=== PATIENT | female | born 1980 | race Caucasian/White ===

== ENCOUNTER 2021-05-26 12:00 | Emergency (ER) | payer OTHER, SELFPAY ==
--- NOTE | 2021-05-26 12:05 | ED.DENTAL ---
HPI - Dental/Oral General Chief complaint: Dental/Oral Stated complaint: Tooth pain Time Seen by Provider: 05/26/21 12:05 Source: patient and RN notes reviewed Mode of arrival: ambulatory Limitations: no limitations History of Present Illness HPI Narrative: 40-year-old female presents to the [facility] with complaints of dental pain the left side of face for 2 days. Patient reports I think I lost a crown. Patient states that she has an appointment with a dental provider coming up but could not wait because of the pain. Has taken Tylenol with minimal to no relief. Related Data Home Medications Medication Instructions Recorded Confirmed cholecalciferol (vitamin D3) 50 mcg PO DAILY 05/26/21 05/26/21 desogestrel-ethinyl estradiol 1 tablet PO DAILY 05/26/21 05/26/21 folic acid 1 mg PO DAILY 05/26/21 05/26/21 omega-3 fatty acids-fish oil [Fish 1 cap PO DAILY 05/26/21 05/26/21 Oil] Allergies Allergy/AdvReac Type Severity Reaction Status Date / Time No Known Allergies Allergy Verified 05/26/21 12:08 Review of Systems Review of Systems: All systems reviewed & are unremarkable except as noted in HPI and below Constitutional: Constitutional: Reports no additional constitutional complaints, Denies chills and Denies fever(s) Eyes: Eyes: Reports no additional eye complaints, Denies change in vision and Denies photophobia ENT: Reports as per HPI Comments: Left lower dental pain Cardiovascular: Cardiovascular: Reports no additional cardiovascular complaints and Denies chest pain Respiratory: Respiratory: Reports no additional respiratory complaints, Denies cough and Denies dyspnea Gastrointestinal: Gastrointestinal: Reports no additional gastrointestinal complaints, Denies abdominal pain, Denies nausea and Denies vomiting Musculoskeletal: Musculoskeletal: Reports no additional musculoskeletal complaints Integumentary/Breasts: Skin/Breast: Reports system reviewed and no additional complaints, except as docu Neurologic: Reports system reviewed and no additional complaints, except as documented Psychiatric: Psychiatric: Reports no additional psychiatric complaints Allergic/Immunologic: Allergic/Immunologic: Reports no additional allergic/immunologic complaints PMFSH Social History Social History Gender identity (if verbalized by the patient): Female Comments At the time of my signature, I reviewed and agree with the nursing past medical, surgical, social, and family history. There is no relevant family history pertinent to the patient complaint. Exam Const: General: healthy appearing, no acute distress and alert Nutritional Appearance: well nourished Orientation/consciousness: patient oriented x3 Limitations: no limitations HENMT: Head: normal to inspection Ears: external ears normal, TM's normal bilaterally and EAC's normal General nose exam: Normal external nose present and Normal nasal mucous membranes and turbinates present Face and sinus: normal facial exam and face symmetric Mouth: Yes Normal oral and palatal mucosa present and Yes lip normal Teeth and gingiva: abnormal tooth and associated gingiva lower left tender and other (Poor dentition with multiple fillings) and gingiva abnormal edematous, diffusely erythematous and tender Teeth image: 1. Filling is noted with swelling around teeth 19, 18 and 17. Increased erythema. Throat: posterior oropharynx normal Eyes: Conjunctivae: conjunctivae normal Pupils: Equal, round and reactive pupils present Neck: Neck: normal visual inspection, no lymphadenopathy and no meningeal signs Chest: Chest palpation & inspection: normal inspection of the chest Resp: Effort & Inspection: normal respiratory effort Auscultation: clear to auscultation bilaterally Cardio: Rate: regular rate Rhythm: regular rhythm Back/Spine/Pelvis: Back: no CVA tenderness Skin: General skin exam: normal color Rashes: no bandar
[2021-05-26 12:12] VITALS: BP 119/75; PULSE 97; RESP 16; TEMP 36.8; O2SAT 100
== END 2021-05-26 12:25 | disposition home or self-care (01) ==
PROVIDERS: Emergency Provider Nurse Practitioner
DX: K04.7 Periapical abscess without sinus (principal)
CPT/HCPCS: 99213; G0463

== ENCOUNTER 2022-10-18 12:49 | Emergency (ER) | payer OTHER, SELFPAY ==
[2022-10-18 13:31] VITALS: BP 137/86; PULSE 108; RESP 18; TEMP 36.8; O2SAT 98
--- NOTE | 2022-10-18 14:47 | ED.GENADULT ---
HPI - General Adult General Chief complaint: Upper Respiratory Infection Stated complaint: sorethroat Time Seen by Provider: 10/18/22 14:47 Source: patient Mode of arrival: ambulatory Limitations: no limitations History of Present Illness HPI narrative: 42-year-old female patient presents to the [facility] with complaints of a sore throat for the past week. Patient states that her came in here earlier and was diagnosed with strep so she would come in to be evaluated. Patient states she has had on off again for fevers and chills and body aches. Denies any significant cough. Denies any abdominal pain, nausea, vomiting or diarrhea. Related Data Allergies Allergy/AdvReac Type Severity Reaction Status Date / Time No Known Allergies Allergy Verified 10/18/22 13:54 Review of Systems Review of Systems: CONSTITUTIONAL: Denies fever, chills, or sweats. EYES: Denies visual changes, redness, or discharge. ENT: Denies rhinorrhea, congestion, Positive sore throat, or otalgia. CARDIOVASCULAR: Denies chest pain, palpitations, or edema. RESPIRATORY: Denies cough or dyspnea. GASTROINTESTINAL: Denies abdominal pain, nausea, vomiting, or diarrhea. GENITOURINARY: Denies dysuria or hematuria. SKIN: Denies rash or itching. MUSCULOSKELETAL: Denies back pain, joint pain, or myalgia. NEUROLOGIC: Denies headache, numbness, or weakness. PSYCHIATRIC: Denies anxiety or depression. [facility] Past Medical History Medical History (Updated 10/18/22 @ 14:54 by SERGIO Watson) No significant past medical history Social History Social History Gender identity (if verbalized by the patient): Female Comments at the time of my signature I agree with nursing past medical history, surgical, social, and family history. There is no relevant family history pertinent to the presenting complaint. Exam Narrative: GENERAL: Well-appearing, well-nourished, and in no acute distress. HEAD: Normocephalic, atraumatic. EYES: PERRLA and EOMI. ENT: Nares clear, no rhinorrhea or epistaxis. Mucous membranes moist. slight erythema noted to the posterior pharynx. No tonsillar large min, no exudates or lesions present. Bilateral TMs are clear no erythema foreign body in the canal. NECK: Supple. No lymphadenopathy CHEST: Clear to auscultation. No respiratory distress. HEART: Regular rate and rhythm. No murmur heard. Normal peripheral pulses. ABDOMEN: Soft, nontender, nondistended, normal active bowel sounds. EXTREMITIES: Normal range of motion. No edema. SKIN: Warm, dry, no rash. NEURO: No focal deficits. Alert and oriented x3. Course Course Level of Care: Express Care Visit Vital Signs Vital signs: Vital Signs Temperature 36.8 C 10/18/22 13:31 Pulse Rate 108 H 10/18/22 13:31 Respiratory Rate 18 10/18/22 13:31 Blood Pressure 137/86 10/18/22 13:31 Pulse Oximetry 98 10/18/22 13:31 Oxygen Delivery Room Air 10/18/22 13:31 Temperature 36.8 C 10/18/22 13:31 Pulse Rate 108 H 10/18/22 13:31 Respiratory Rate 18 10/18/22 13:31 Blood Pressure 137/86 10/18/22 13:31 Pulse Oximetry 98 10/18/22 13:31 Oxygen Delivery Room Air 10/18/22 13:31 Vital signs reviewed. The patient has been informed that they may have pre-hypertension or Hypertension based on a BP reading in the department. I recommend that the patient call the primary care provider listed on their discharge instructions or a physician of their choice this week to arrange follow up for further evaluation of possible pre-hypertension or Hypertension Medical Decision Making MDM Narrative Medical decision making narrative: Notify patient that she has positive today for strep throat. We will go ahead and discharge her home with oral antibiotics. Discussed with patient the plan of care and she is in agreement this time. Differential Diagnosis Differential Diagnosis: Differential diagnosis: Viral ph
== END 2022-10-18 14:59 | disposition home or self-care (01) ==
PROVIDERS: Emergency Provider Nurse Practitioner Family
DX: J02.0 Streptococcal pharyngitis (principal)
CPT/HCPCS: 87880; 99213; G0463

== ENCOUNTER 2023-12-22 10:43 | Emergency (ER) | payer OTHER, SELFPAY ==
[2023-12-22 11:29] VITALS: BP 125/83; PULSE 103; RESP 18; TEMP 36.9; O2SAT 100
--- NOTE | 2023-12-22 11:33 | ED.URI ---
HPI - URI/Sore Throat General Chief Complaint: Upper Respiratory Infection Stated Complaint: covid + home test Time Seen by Provider: 12/22/23 11:30 Source: patient and RN notes reviewed Mode of arrival: ambulatory Limitations: no limitations History of Present Illness HPI Narrative: 43-year-old female presents concern for positive COVID test at home. She reports symptoms started on Thursday. She has been taking several OTC meds including Sudafed. She had a positive COVID test at home MD elicited complaint: nasal congestion Related Data Home Medications Medication Instructions Recorded Confirmed cholecalciferol (vitamin D3) 125 125 mcg PO WEEKLY 12/22/23 12/22/23 mcg (5,000 unit) capsule Allergies Allergy/AdvReac Type Severity Reaction Status Date / Time No Known Allergies Allergy Verified 12/22/23 11:27 Review of Systems Review of Systems: CONSTITUTIONAL: Reports malaise EYES: Denies visual changes, redness, or discharge. ENT: Reports rhinorrhea, congestion CARDIOVASCULAR: Denies chest pain, palpitations, or edema. RESPIRATORY: Reports cough. Denies dyspnea. GASTROINTESTINAL: Denies abdominal pain, nausea, vomiting, diarrhea SKIN: Denies rash or itching. MUSCULOSKELETAL: Reports myalgia. NEUROLOGIC: Reports headache. All systems reviewed & are unremarkable except as noted in HPI and below PMFSH Past Medical History Medical History (Updated 12/22/23 @ 11:53 by Lavonne Mcgraw NP) No significant past medical history Social History Social History Gender identity (if verbalized by the patient): Female Comments At time of signature, agree with nursing past medical, surgical, social and family history. There is no relevant family history pertinent to the presenting complaint Exam Narrative: GENERAL: Nontoxic-appearing, well-nourished, and in no acute distress. HEAD: Normocephalic EYES: PERRLA, conjunctivae clear ENT: Nares clear, turbinates edematous and erythematous, clear discharge. Mucous membranes moist. TM pearly breen with dull light reflex bilaterally; no tragal tenderness. Oropharynx not erythematous without lesions. Tonsils not enlarged and without exudate, no drooling, no hoarseness, no trismus, uvula midline. NECK: Supple. No lymphadenopathy CHEST: Clear to auscultation, breath sounds equal. No wheezing, rhonchi, rales, or stridor. No respiratory distress, speaks in full sentences. HEART: Regular rate and rhythm. No murmur heard. SKIN: Warm, dry, no rash. NEURO: Alert and oriented x3. PSYCH: Normal mood and affect Course Course Emergency Course: Patient is aware of diagnosis, understands and agrees to treatment plan. Anticipatory guidance given. Patient agrees to follow-up as directed and is aware of reasons to seek care at the emergency department. Portions of this record may have been created with voice recognition software Level of Care: Express Care Visit Vital Signs Vital signs: Vital Signs Temperature 98.5 F 12/22/23 11:29 Pulse Rate 103 H 12/22/23 11:29 Respiratory Rate 18 12/22/23 11:29 Blood Pressure 125/83 12/22/23 11:29 Pulse Oximetry 100 12/22/23 11:29 Oxygen Delivery Room Air 12/22/23 11:29 Temperature 98.5 F 12/22/23 11:29 Pulse Rate 103 H 12/22/23 11:29 Respiratory Rate 18 12/22/23 11:29 Blood Pressure 125/83 12/22/23 11:29 Pulse Oximetry 100 12/22/23 11:29 Oxygen Delivery Room Air 12/22/23 11:29 Reviewed. MDM - URI/Sore Throat MDM Narrative Medical decision making narrative: Differential diagnosis considered: Alves virus, strep pharyngitis, allergic rhinitis, upper respiratory tract infection, sinusitis, rhinosinusitis, nasopharyngitis. viral pharyngitis, otitis media, otitis externa, pneumonia, bronchitis, viral cough syndrome, viral syndrome, and influenza. Exam findings show no acute concerns or changes; patient is non-toxic appearing and is in no
== END 2023-12-22 12:02 | disposition home or self-care (01) ==
PROVIDERS: Emergency Provider Nurse Practitioner
DX: U07.1 COVID-19 (principal)
CPT/HCPCS: 87426; 87804; 99213; G0463

== ENCOUNTER 2024-11-10 09:05 | Emergency (ER) | payer OTHER, SELFPAY ==
[2024-11-10 09:13] VITALS: BP 128/84; PULSE 108; RESP 18; TEMP 36.7; O2SAT 99
--- OUTSIDE RECORDS SUMMARY | 2024-11-10 09:29 | XMS_ITS | Clinical Summary ---
Author Organization [facility] Address [address] [place] [address]. [place], [place] [id number] [place] [id number] Care Team Providers Care Air Tube Releaser Name Role Phone None, Provider MD Primary Care Provider Unavaila ble Allergies No known active allergies Medications omeprazole 10 MG capsule Take 10 mg by mouth daily. Active insulin NPH 100 UNIT/ML injection Inject 12 Units into the skin every morning. Active insulin aspart 100 UNIT/ML injection (PEN) Inject 8 Units into the skin every morning. Active insulin aspart 100 UNIT/ML injection (PEN) Inject 4 Units into the skin after lunch. Active insulin NPH 100 UNIT/ML injection Inject 18 Units into the skin every evening. Active insulin aspart 100 UNIT/ML injection (PEN) Inject 6 Units into the skin every evening. Active Immunizations Name Administration Dates Next Due MODERNA COVID-19 (12+) MRNA, LNP-S, PF, 100 MCG/ 0.5 ML DOSE 02/08/2021,01/11/2021 Social History Tobacco Use Types Packs/Day Years Used Date Smoking Tobacco: Never Smokeless Tobacco: Never Alcohol Use Standard Drinks/Week Comments No 0 (1 standard drink = 0.6 oz pur e alcohol) Humiliation, Afraid, Rape, and Kick questionnair e Answer Date Recorded Fear of Current or Ex-Partner No Emotionally Abused No 07/07/2019 Physically Abused No 07/07/2019 Sexually Abused No 07/07/2019 AUDIT-C Answer Date Recorded Frequency of Alcohol Consumption Never 06/28/2019 Average Number of Drinks Not on file 019 Frequency of Binge Drinking Not on file 06/12 Comments No Sex and Gender Information Value Date Recorded Sex Assigned at Not on file Legal Sex Female 7:56 PM CDT Gender Identity Not on file Sexual Orientation Not on file Last Filed Vital Signs Vital Sign Reading Time Taken Comments Blood Pressure 117/82 07/14/2019 1:10 PM CDT Pulse 95 07/14/2019 1:35 PM CDT Temperature 36.9 ??C (98.5 ??F) 07/07/2019 1:30 PM CD T Respiratory Rate 16 07/07/2019 3:30 PM CDT Oxygen Saturation 100% 07/14/2019 1:35 PM CDT Inhaled Oxygen Concentration - - Weight 78.5 kg (173 lb) 07/14/2019 10:11 AM CDT Height 157.5 cm (5' 2 ) 07/14/2019 10:11 AM CDT Body Mass Index 31.64 07/14/2019 10:11 AM CDT Plan of Treatment Health Maintenance Due Date Last Done Comments Cervical Cancer Screening Pa p Smear (Age 30 to 64) Every 3 Years 1981 Annual Physical 1984 Hepatitis C 1999 DTaP, Tdap and Td Vaccines ( 1 - Tdap) 2000 Hepatitis B Vaccines (1 of 3 - 19+ 3-dose series) 2000 Cervical Cancer Screening Pa p with HPV Testing (Age 30 to 64) Every 5 Years 2011 Cervical Cancer Screening [facility] HPV 2011 Mammogram Screening 2021 COVID-19 Vaccine (3 - 2023-2 5 season) 2024 02/08/2021, 01/11/2021 Influenza Adult (#1) 2024 08/26/2016 HPV Vaccines Aged Out No longer eligi ble based on patient's age to complete this topic Meningococcal B Vaccine Aged Out No l onger eligible based on patient's age to complete this topic Meningococcal Vaccine Aged Out No maria e luis eligible based on patient's age to complete this topic Pneumococcal Vaccine: Pediatrics (0 to 5 Years) and At-Risk Patients (6 to 64 Years) Aged Out No longer eligible b ased on patient's age to complete this topic RSV Immunizations Under 20 Months Aged Out No longer eligible b ased on patient's age to complete this topic Insurance Care Teams Air Tube Releaser Relationship Specialty Start Date End Date None, Provider, PCP - General 06/28/19
--- OUTSIDE RECORDS SUMMARY | 2024-11-10 09:29 | XMS_ITS | Clinical Summary ---
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 Gender Identity Not on file Sexual Orientation Not on file Plan of Treatment Health Maintenance Due Date Last Done Comments Hepatitis C Virus (HCV) Screening 1981 TdaP Immunization 1981 Hepatitis B Immunization (1 of 3 - 19+ 3-dose series) 2000 Pap Smear 2002 Cervical Cancer Screening (CCS) 2011 HPV/Cotest 2011 Discussion re Starting/Frequency of Mammograms 2021 Influenza Immunization (#1) 06/12/202407/12, 08/26/2016 SARS-COV-2 Immunization ( season) 2024 Respiratory Syncytial Virus (RSV) Immunization (Adult) (1 - 1-dose 75+ series) 2056 Meningococcal Immunization (ACWY) Aged Out No longer eligible b ased on patient's age to complete this topic Pneumococcal Immunization Combined Aged Out No longer eligible b ased on patient's age to complete this topic Rotavirus Immunization Aged Out No lo nger eligible based on patient's age to complete this topic Insurance [employer] on file
--- OUTSIDE RECORDS SUMMARY | 2024-11-10 09:29 | XMS_ITS | Continuity of Care Document ---
Author Name [facility] Organization [facility] Care Team Providers Care Cash Register Balancer Name Role Phone [facility] Unavailable Unavailable Problems Combined list of problems from Department of Defense and Veterans Affairs facilities. It does not include entries that were removed or entered in error. Problem Status Onset Date Problem Type Date of Resolution Comments Source BMI 30.0-30.9 Active 4 Diagnosis 005- Joselito Obesity, unspecified Active 4 Diagnosis 005- Joselito Encounter for gynecological examination (general) (routine) with abnormal findings Active 4 Diagnosis 005- Joselito Other specified abnormal findings of blood chemistry Active 4 Diagnosis 005- Joselito [place] Active 4 Diagnosis 0055C- Joselito Supervision of elderly multigravida, unspecified trimester Active 9 Condition [facility] Gestational diabetes mellitus, class A>2< Active 5 Condition [facility] Gestational diabetes mellitus in , insulin controlled Active 5 Condition [facility] External hemorrhoids Active Condition [facility] visit for: administrative purpose Inactive Condition [facility] right ankle joint pain Inactive Condition [facility] Outpatient Physician Consultation Active Condition [facility] hemorrhoids external Active Condition [facility] breast pain Active Condition [facility] visit for: services physical Inactive Condition [facility] Medications Combined list of outpatient medications from Department of Defense and Veterans Affairs facilities.Medications provided include 1) outpatient medications from the last 15 months, and 2) patient-reported medications. Medication Details Route Status Patient Instructions Prescription Expires Prescription Number Last Dispense Date Ordering Provider Order Date Order Qty Source amoxicillin -clavulanat e 875 mg-125 mg oral tablet 0 total refill(s ) Discont inued 08/03/2024 No Facilit y Access CHOLECALCIF (VIT D3) 5,000 UNIT ORAL CAP 02/03/2024 [id number] 2023 90 [facility] Delfino EASON [place] cholecalcif cole 125 mcg (5,000 units) capsule See Instruct ions, # 90 EA, 3 total refill(s ), Acute Complet ed 02/03/2024 90.0 Ambulat ory Pharmac y cholecalcif cole 125 mcg (5000 intl units) oral capsule cholecal ciferol 125 mcg (5000 intl units) oral capsule Start Date: 02/21/21 Status: Ordered Ordered No Facilit y Access desogestrel -ethinyl estradiol 0.15 mg-0.03 mg oral tablet desogest rel-ethi nyl estradio l 0.15 mg-0.03 mg oral tablet Start Date: 06/28/21 Stop Date: 08/03/24 Status: Disconti nued Discont inued 08/03/2024 No Facilit y Access folic acid 1 mg oral tablet 1 tab(s), Oral, Daily, # 90 tab(s), 3 total refill(s ), [facility], Pharmacy : [facility] Oral (given by mouth) Ordered 90.0 5C-[address] [place] [address] Delfino folic acid 1 mg oral tablet TAKE ONE TABLET BY MOUTH DAILY, # 90 EA, 3 total refill(s ), Acute Complet ed 02/03/2024 90.0 Ambulat ory Pharmac y ibuprofen 600 mg oral tablet ibuprofe n 600 mg oral tablet Start Date: 06/01/21 Status: Ordered Ordered No Facilit y Access methylPREDN ISolone 4 mg oral tablet methylPR EDNISolo ne 4 mg oral tablet Start Date: 08/04/21 Stop Date: 08/03/24 Status: Disconti nued Discont inued 08/03/2024 No Facilit y Access omega-3 polyunsatur ated fatty acids 1000 mg oral capsule omega-3 polyunsa turated fatty acids 1000 mg oral capsule Start Date: 02/21/21 Stop Date: 08/03/24 Status: Disconti nued Discont inued 08/03/2024 No Facilit y Access penicillin V potassium 500 mg oral tablet 0 total refill(s ) Discont inued 08/03/2024 No Facilit y Access Pepcid 0 total refill(s ), [facility] Ordered 5C-[address] [place] [address] Delfino Vitamin D3 125 mcg (5000 intl units) oral capsule 1 cap(s), Oral, Daily, with food, # 90 cap(s), 4 total refill(s ), [facility], Pharmacy : [facility] Oral (given by mouth) Ordered 90.0 0055C-[address] [place] [address] Delfino Pippa 3 mg-0.03 mg oral tablet 1 tab(s), Oral, Daily, # 112 tab(s), 4 total refill(s ), [facility], Pharmacy : [facility] Oral (given by mouth) Ordered 112.0 0055C-[address] [place] [address] Delfino Allergies, Adverse Reactions, Alerts Combined list of allergies from Department of Defense and Veterans Affairs facilities. It does not include entries that were removed or entered in error. Substance Category Reaction Severity Reaction type Status Date Reported Comments Source No Known Allergies Drug allergy (disorder) active 03/31/2019 [facility] Delfino EASON [place] Immunizations Combined list of available immunizations from the Department of Defense and Veterans Affairs facilities. Immunization Series Date Given Administered By Site Reaction Lot Number CVX Code Drug Burlap Bag Sewer Status Comments Source COVID Vaccine Moderna 2020 [facility] [id number] complet ed Result Comment: Route: Intramusc ular Manufactu rer: Moderna US Inc 0055C-[address] [place] [address] COVID Vaccine Moderna 2020 [facility] [id number] complet ed Result Comment: Route: Intramusc ular Manufactu rer: Moderna US Inc 0055C-[address] [place] [address] tetanus, diphtheria, acellular pertu is 2018 zzLef t Arm [id number] 115 GlaxoSmithKli ne complet ed tetanus, diphtheri a, acellular pertussis 05/24/19 Given Ambulat ory Pharmac y tetanus toxoid, reduced diphtheria toxoid, and acellular pertu is vaccine, adsorbed 1 2018 Unknown, Provider [id number] 115 SmithKline (SKB) complet ed tetanus toxoid, reduced diphtheri a toxoid, and acellular pertussis vaccine, adsorbed DoD Influenza, inj, MDCK, quadrivalent- pf 2015 SON 171 complet ed Result Comment: Route: Unknown Manufactu rer: OT (SEQ) 0055C-[address] [place] [address] Delfino influenza virus vaccine, live 2011 [id number] Medimmune Inc comple t ed influenza virus vaccine, live 07/31/12 Given Ambulat ory Pharmac y influenza virus vaccine, live, attenuated, for intranasal use 1 2011 [id number] [address] [employer] [address] (MED) complet ed influenza virus vaccine, live, attenuate d, for intranasa l use DoD tetanus, diphtheria, acellular pertu is 2011 [id number] 115 sanofi pasteur complet ed tetanus, diphtheri a, acellular pertussis 05/15/12 Given Ambulat ory Pharmac y tuberculin purified protein derivative 2011 zzRig ht Arm [id number] 96 sanofi pasteur complet ed Patient Tolerance : Negative Ambulat ory Pharmac y tuberculin skin test; purified protein derivative solution, intradermal 1 2011 Unknown, Provider [id number] 96 Sanofi Pasteur (PMC) complet ed tuberculi n skin test; purified protein derivativ e solution, intraderm al DoD tetanus toxoid, reduced diphtheria toxoid, and acellular pertu is vaccine, adsorbed 1 2011 [id number] 115 Sanofi Pasteur (PMC) complet ed tetanus toxoid, reduced diphtheri a toxoid, and acellular pertussis vaccine, adsorbed DoD typhoid Vi capsular polysaccharid e vac 2010 [id number] 101 sanofi pasteur complet ed typhoid Vi capsular polysacch aride vac 07/11/11 Given Ambulat ory Pharmac y anthrax vaccine 2010 [id number] Emer[employer] complet ed anthrax vaccine 07/11/11 Given Ambulat ory Pharmac y anthrax vaccine 5 2010 [id number] [employer] [place] ([facility]) complet ed anthrax vaccine DoD typhoid Vi capsular polysaccharid e vaccine 3 2010 [id number] 101 Sanofi Pasteur (PMC) complet ed typhoid Vi capsular polysacch aride vaccine DoD influenza, seasonal, injectable 2010 [id number] 141 sanofi pasteur complet ed influenza , seasonal, injectabl e 06/28/11 Given Ambulat ory Pharmac y Influenza, seasonal, injectable 6 2010 [id number] 141 Sanofi Pasteur (PMC) complet ed Influenza , seasonal, injectabl e DoD anthrax vaccine 2010 [id number] 24 [employer] complet ed anthrax vaccine 12/29/10 Given Ambulat ory Pharmac y anthrax vaccine 4 2010 [id number] 24 [employer] [place] ([facility]) complet ed anthrax vaccine DoD influenza virus vaccine, live 2009 [id number] 111 [employer] comple t ed influenza virus vaccine, live 07/13/10 Given Ambulat ory Pharmac y influenza virus vaccine, live, attenuated, for intranasal use 1 2009 [id number] [address] (MED) complet ed influenza virus vaccine, live, attenuate d, for intranasa l use DoD tuberculin purified protein derivative 2009 zzLef t Arm [id number] 96 sanofi pasteur complet ed Patient Tolerance : Negative Ambulat ory Pharmac y tuberculin skin test; purified protein derivative solution, intradermal 1 2009 Unknown, Provider [id number] 96 Sanofi Pasteur ([facility]) complet ed tuberculi n skin test; purified protein derivativ e solution, intraderm al DoD Novel influenza-H1N 1-09, injectable 2008 [id number] 127 Novartis Pharmaceutica ls complet ed Novel influenza -[id number], injectabl e 08/28/09 Given Ambulat ory Pharmac y Novel influenza-H1N 1-09, injectable 1 2008 [id number] 127 Novartis Pharmaceutica l Eran. (NOV) complet ed Novel influenza -H9K9-20, injectabl e DoD anthrax vaccine 2008 [id number] 24 [employer] complet ed anthrax vaccine 08/16/09 Given Ambulat ory Pharmac y anthrax vaccine 3 2008 [id number] 24 [employer] [place] ([facility]) complet ed anthrax vaccine DoD influenza virus vaccine,split 2008 [id number] 15 sanofi pasteur complet ed influenza virus vaccine,s plit 07/04/09 Given Ambulat ory Pharmac y influenza virus vaccine, split virus (incl. purified surface antigen)-reti red CODE 4 2008 [id number] 15 Sanofi Pasteur ([facility]) complet ed influenza virus vaccine, split virus (incl. purified surface antigen)- retired CODE DoD typhoid Vi capsular polysaccharid e vac 2008 [id number] 101 sanofi pasteur complet ed typhoid Vi capsular polysacch aride vac 06/12/09 Given Ambulat ory Pharmac y typhoid Vi capsular polysaccharid e vaccine 2 2008 [id number] 101 Sanofi Pasteur (PMC) complet ed typhoid Vi capsular polysacch aride vaccine DoD vaccinia (smallpox) vaccine 2008 VV04-00 3A 75 [employer] [facility] complet ed vaccinia (smallpox ) vaccine 03/06/09 Given Ambulat ory Pharmac y anthrax vaccine 2008 [id number] 24 [employer] complet ed anthrax vaccine 03/06/09 Given Ambulat ory Pharmac y anthrax vaccine 3 2008 [id number] 24 [employer] [place] (MIP) complet ed anthrax vaccine DoD vaccinia (smallpox) vaccine 1 2008 VV04-00 3A 75 [facility] ([facility]) complet ed vaccinia (smallpox ) vaccine DoD anthrax vaccine 2008 [id number] 24 [employer] complet ed anthrax vaccine 02/26/09 Given Ambulat ory Pharmac y anthrax vaccine 2 2008 [id number] 24 [employer] [place] (MIP) complet ed anthrax vaccine DoD anthrax vaccine 2008 [id number] 24 [employer] complet ed anthrax vaccine 01/28/09 Given Ambulat ory Pharmac y anthrax vaccine 1 2008 [id number] 24 [employer] [place] (MIP) complet ed anthrax vaccine DoD influenza virus vaccine, live 2007 [id number] 111 [employer] comple t ed influenza virus vaccine, live 07/15/08 Given Ambulat ory Pharmac y influenza virus vaccine, live, attenuated, for intranasal use 1 2007 [id number] 111 [employer] (MED) complet ed influenza virus vaccine, live, attenuate d, for intranasa l use DoD influenza virus vaccine, live 2006 [id number] 111 [employer] comple t ed influenza virus vaccine, live 10/07/07 Given Ambulat ory Pharmac y influenza virus vaccine, live, attenuated, for intranasal use 1 2006 [id number] [address] [employer] [address] (MED) complet ed influenza virus vaccine, live, attenuate d, for intranasa l use DoD hepatitis A-hepatitis B vaccine 2006 [id number] 3AB 104 [facility] ed hepatitis A-hepatit is B vaccine 05/13/07 Given Ambulat ory Pharmac y typhoid vaccine, parenteral 2006 [id number] sanofi pasteur complet ed typhoid vaccine, parentera l 05/13/07 Given Ambulat ory Pharmac y typhoid vaccine, parenteral, other than acetone-kille d, dried 1 2006 [id number] 41 Sanofi Pasteur (PMC) complet ed typhoid vaccine, parentera l, other than acetone-k illed, dried DoD hepatitis A and hepatitis B vaccine 3 2006 [id number] 3AB 104 SmithKline (SKB) complet ed hepatitis A and hepatitis B vaccine DoD measles, mumps and rubella virus vaccine 0 2006 03 () Not Given measles, mumps and rubella virus vaccine DoD varicella virus vaccine 0 2006 21 () Not Given varicella virus vaccine DoD hepatitis A-hepatitis B vaccine 2006 [id number] [id number] 104 GlaxoSmithKli ne complet ed hepatitis A-hepatit is B vaccine 10/17/06 Given Ambulat ory Pharmac y hepatitis A and hepatitis B vaccine 2 2006 [id number] 8AA 104 [employer]Kline (SKB) complet ed hepatitis A and hepatitis B vaccine DoD meningococcal polysaccharid e (MPSV4) 2005 [id number] 32 sanofi pasteur complet ed meningoco ccal polysacch aride (MPSV4) 09/16/06 Given Ambulat ory Pharmac y hepatitis A-hepatitis B vaccine 2005 [id number] 8AA 104 GlaxoSmithKli ne complet ed hepatitis A-hepatit is B vaccine 09/16/06 Given Ambulat ory Pharmac y measles, mumps and rubella virus vaccine 1 2005 03 () Not Given measles, mumps and rubella virus vaccine DoD varicella virus vaccine 1 2005 21 () Not Given varicella virus vaccine DoD meningococcal polysaccharid e vaccine (MPSV4) 1 2005 [id number] Sanofi Pasteur (PMC) complet ed meningoco ccal polysacch aride vaccine (MPSV4) DoD hepatitis A and hepatitis B vaccine 1 2005 AHABB06 8AA 104 SmithKline (SKB) complet ed hepatitis A and hepatitis B vaccine DoD tuberculin purified protein derivative 2005 Wilmer t Arm [id number] 96 sanofi pasteur complet ed Patient Tolerance : Negative Ambulat ory Pharmac y influenza virus vaccine, whole virus 2005 zzSahara ht Arm [id number] 9BA 16 GlaxoSmithKli ne complet ed influenza virus vaccine, whole virus 09/10/06 Given Ambulat ory Pharmac y influenza virus vaccine,split 2005 [id number] [id number] 15 GlaxoSmithKli ne complet ed influenza virus vaccine,s plit 09/10/06 Given Ambulat ory Pharmac y poliovirus vaccine, inactivated 2005 [id number] 10 sanofi pasteur complet ed polioviru s vaccine, inactivat ed 09/10/06 Given Ambulat ory Pharmac y tetanus-dipht h toxoids (Td) adult/adol 2005 [id number] 09 sanofi pasteur complet ed tetanus-d iphth toxoids (Td) adult/ado l 09/10/06 Given Ambulat ory Pharmac y tetanus and diphtheria toxoids, adsorbed, preservative free, for adult use (2 Lf of tetanus toxoid and 2 Lf of diphtheria toxoid) 1 2005 [id number] 09 Sanofi Pasteur ([facility]) complet ed tetanus and diphtheri a toxoids, adsorbed, preservat sharon free, for adult use (2 Lf of tetanus toxoid and 2 Lf of diphtheri a toxoid) DoD poliovirus vaccine, inactivated 1 2005 [id number] 10 Sanofi Pasteur (PMC) complet ed polioviru s vaccine, inactivat ed DoD influenza virus vaccine, split virus (incl. purified surface antigen)-reti red CODE 1 2005 [id number] 15 [facility] ([facility]) complet ed influenza virus vaccine, split virus (incl. purified surface antigen)- retired CODE DoD influenza virus vaccine, whole virus 1 2005 Unknown, Provider [id number] 16 SmithKline (SKB) complet ed influenza virus vaccine, whole virus DoD tuberculin skin test; purified protein derivative solution, intradermal 1 2005 Unknown, Provider [id number] Sanofi Pasteur ([facility]) complet ed tuberculi n skin test; purified protein derivativ e solution, intraderm al DoD Results Combined list of recent chemistry, hematology and other laboratory results from Department of Defense and Veterans Affairs, ranging from 15 months to all on record, depending upon the facility. Order Name Results Value Reference Range Date Interpretation Specimen Comments Source Chemistr y Vitamin D 25 OH 113.0 ng/mL 30.0 - 100.0 08/05 H Interpretiv e Data: Classificat ion of Vitamin D Status: Deficient: <20 ng/mL Insufficien t: 20-29 ng/mL Sufficient: 30-100 ng/mL Possible Toxicity: >100 ng/mL This assay is for the quantitativ e determinati on of total 25 (OH) vitamin D. It is intended as an aid in the determinati on of vitamin D sufficiency . Results should always be interpreted in conjunction with the patient's medical history, clinical presentatio n, and other findings. Testing performed by [facility] [facility] cuevas. [facility] Pharm[facility] Chemistr y TSH 1.180 mIU/L 0.270 - 4.200 08/05 N Interpretiv e Data: Recommend: TPO/Thyrope roxidase Antibody when TSH result is > 4.2 uIU/mL [facility] Chemistr y Triglyceri case 94 mg/dL 7 - 149 08/05 N Interpretiv e Data: AGES 0-9: Desirable: < 75 mg/dL Borderline High: 75-99 mg/dL High: >/= 100 mg/dL AGES 10-19: Desirable: < 90 mg/dL Borderline High: 90-129 mg/dL High: >/= 130 mg/dL ADULTS: Desirable: < 150 mg/dL Borderline High: 150-199 mg/dL High: >/= 240 mg/dL Very High: >/= 500 mg/dL [facility] Chemistr y LDL/HDL 4 08/05 [facility] Chemistr y LDL 155 mg/dL 100 - 130 08/05 H Interpretiv e Data: AGES 0-19: Desirable: < 110 mg/dL Borderline High: 110-129 mg/dL High: >/= 130 mg/dL ADULTS: Desirable: <100 mg/dL Near/above optimal: 100-130 mg/dL Borderline High: 131-159 mg/dL High: 160-189 mg/dL Very High: e190 mg/dL [facility] Chemistr y HDL Cholestero l 42 mg/dL 40 - 59 08/05 N Interpretiv e Data: HDL (HIGH DENSITY LIPOPROTEIN ): ADULTS: Low: < 40 mg/dL High: >/= 60 mg/dL AGES 0 -19: Low: < 40 mg/dL Borderline Low: 40 - 45 mg/dL Acceptable: > 45 mg/dL [facility] Pharm[facility] Chemistr y Cholestero l Total 192 mg/dL 08/05 N Interpretiv e Data: According to the [place] [employer] : AGES 0-19: Desirable: < 170 mg/dL Borderline High: 170-199 mg/dL High Blood Cholesterol : >/= 200 mg/dL ADULTS: Desirable < 200 mg/dL Borderline High: 200-239 mg/dL High Blood Cholesterol : >/= 240 mg/dL [facility] Pharm[facility] Chemistr y Chol/HDL 5 mg/dL 08/05 [facility] Pharm[facility] Chemistr y Hemoglobin A1c 6.2 % 4.0 - 5.6 08/05 H Interpretiv e Data: Normal: 4.0 - 5.6% Increased Risk: 5.7 - 6.4% Diabetic Range: e 6.5% For patients without diabetes, the normal range for the hemoglobin A1c test is between 4% and 5.6%. Hemoglobin A1c levels between 5.7% and 6.4% indicate increased risk of diabetes, and levels of 6.5% or higher indicate diabetes. Because studies have repeatedly shown that out-of-cont rol diabetes results in complicatio ns from the disease, the goal for people with diabetes is a hemoglobin A1c less than 7%. The higher the hemoglobin A1c, the higher the risks of developing complicatio ns related to diabetes. If confirmatio n is needed, consider recalling the patient and ordering Hemoglobin Electrophor esis. [facility] Pharm[facility] Chemistr y eAvg Glucose 131 mg/dL 08/05 [facility] Pharmacy Hematolo gy Hemoglobin 11.0 g/dL 11.0 - 15.0 08/05 N [facility] Pharmacy Hematolo gy Hematocrit 36 % 34 - 46 08/05 N [facility] AP Specimen s AP Surgical Pathology Patient: Mary Brooks Specimen #: [id number] Patholog ist: Mustapha brian MD, Les., USAF Accessio n: 09/09/20 [facility] DEPARTME NT OF PATHOLOG Y [address] [employer] [facility] [address] [place] [address] Surgical Patholog y Report Patient: Mary Brooks Specimen #: [id number] DOD ID:: [id number] Encounte r #: [id number] Taken: 09/07/20 08:30 /Age: [birth year] (Age: 42) Received : 09/09/20 07:16 Physicia n(s): OCTAVIO CARBONE Reported : 3 Specimen (s) Received Taken Rec LEFT lower, outer breast 09/07/20 08:30 09/09/20 07:16 Final Diagnosi s Breast, Left, 4 o'clock N+3, Ultrasou nd-guide d Biopsy: - Benign intramam lymph node. - Negative for atypia or malignan cy. Comments This case has been reviewed by Dr. Tyrell Camarillo, Staff [facility] ist. Elect sanchoicall y Signed mjp/08/14 Mustapha brian MD, Les., [facility] Clinical Diagnosi s and History 42 yo Female with LEFT breast mass. Suspect intramam lymph node with uniforml y thickene d cortex. Pre-Oper ative Diagnosi s Suspect intramam lymph node vs fibroade noma Post-Ope rative Diagnosi s TBD Gross Descript ion Received in 10% neutral buffered formalin is one containe r labeled with the correct patient' s name and secondar y identifi ers. Part A. Labeled 1st in-0832, last in-849 . The anatomic site is not provided on specimen containe r. Consists of 7 white to yellow, focally hemorrha gic soft tissue fragment s ranging from 0.3 to 1.3 cm in length by 0.1 to 0.2 cm in diameter . ET 2. Block(s) submitte d in 10% neutral buffered formalin for paraffin -embedde d sections . Cold ischemic time: Less than 1 hour. Total fixation time: Greater than 6 hours and less than 72 hours. AWC/ANAT/ JOB , MLJ CPT Codes: A; 53025 09/07 Amb[facility] Pharmacy Vital Signs Combined list of inpatient and outpatient Vital Signs from Department of [facility] and [facility], ranging from 12 months to all on record, depending upon the facility. Vital Sign Value Date Comments Source Systolic Blood Pressure 106mm[Hg] 08/03/2024 14:52:00 Ambulatory Pharmacy Diastolic Blood Pressure 72mm[Hg] 08/03/2024 14:52:00 Ambulatory Pharmacy Mean Arterial Pressure, Calc 83mm[Hg] 08/03/2024 14:52:00 Ambulatory P harmacy Peripheral Pulse Rate 83bpm 08/03/2024 14:52:00 Ambulatory Pharmacy Respiratory Rate 16br/min 08/03/2024 14:52:00 Ambulatory Pharmacy Temperature Oral 37.0Cel 08/03/2024 14:52:00 Ambulatory Pharmacy BP Site 08/03/2024 14:52:00 Ambul atory Pharmacy Blood Pressure Manual 08/03/2024 14:52:00 Ambulatory Pharmacy Encounters Combined list of: 1) Encounters from Department of Veterans Affairs facilities going back up to thelast 18 months. 2) Encounters from the Department of [facility] facilities going back up to 280 months. Location Location Details Encounter Type Encounter Number Reason For Visit Attending Provider ADM Date DC Date Status Disposition Source Theater Facility OUTPATIENT [id number] 10/03 Released w/o Limitations Theater Facilit y [address] [place] [address] Delfino EASON [facility]Sco tt [facility] Fam Res Tm Green) OUTPATIENT [id number] pain in both breats x 2 weeks 367.113 1 MARKY MORAN 01/22 Released w/o Limitations [address] [place] [address] Delfino Leyla [facility] Fam [facility] [place]) [address] [place] [address] Delfino [facility])(Sco tt [facility] FAMRES Tm Blue) OUTPATIENT [id number] Rectum pain, discomf ort possibl e hemmrho ids H# GREGG RODRÍGUEZ 09/24 Released w/o Limitations [address] [place] [address] Delfino EASON [facility]m [facility]) [address] [place] [address] Delfino Leyla [facility]) TELE CONSULT [id number] Notes Entered by: MARTY ALVARADO 16 Nov 2012 1526 ------- ------- ------- ------- -- Network Results - SURGERY 11/02/12 GREGG RODRÍGUEZ 11/[address] [place] [address] Group Delfino EASON [place]S zaheer [facility] FAMRES Tm Blue) [address] [place] [address] Delfino [facility])(Sco tt [facility] Team 3) OUTPATIENT [id number] pain in ankle 367 1131 MAYELIN DONOVAN 09/28 Released w/o Limitations [address] [place] [address] [facility] Team 3) [address] [place] [address] [facility] HEALTH)(Fam gisela Med Tm B Non-AD BCC) TELE CONSULT [id number] Notes Entered by: WILLIAM REYES 28 Sep 2013 1607 ------- ------- ------- ------- -- X-ray results TYRELL LUCIO 09/[address] [place] [address])(F amily Med Tm B Non-AD BCC) [address] [place] [address] Delfino [facility])(Branch Account Manager ecology) TELE CONSULT [id number] Notes Entered by: RABIA PHELPS 15 Jan 2015 1009 ------- ------- ------- ------- -- Walk in preg test JENNIFER HOLLEY 01/15 Referred for Appointment [address] [place] [address])(Margareth gore gy) [address] [place] [address] Delfino [facility])(Ob/ Branch Account Manager) TELE CONSULT [id number] Notes Entered by: Mohit HARRY 17 Jan 2015 0853 ------- ------- ------- ------- -- Lab results MERNA MUELLER 01/[address] [place] [address] Delfino [facility])(O b/Branch Account Manager) [address] [place] [address] Delfino [facility])(Ob/ Branch Account Manager) OUTPATIENT [id number] ob orienta tion - edc sep 25 MERNA MUELLER 01/24 Released w/o Limitations [employer] [place]O b/Branch Account Manager) [facility] [employer] ([facility]Ob/ Branch Account Manager) OUTPATIENT [id number] new ob - edc sep 25 JUAN HARRY 02/19 Released w/o Limitations [facility] [employer] ([facility]O b/Branch Account Manager) [facility] [employer] ([facility]Ob/ Branch Account Manager) TELE CONSULT [id number] Notes Entered by: AKILA ROBERTS 20 Feb 2015 1209 ------- ------- ------- ------- -- Referra omar colin for SunshineMERNA Ceja 02/20 [facility] [employer] ([facility]O b/Branch Account Manager) [facility] [employer] [facility]Ob/ Branch Account Manager) TELE CONSULT [id number] Notes Entered by: HERRERA PHILLIP 14 Mar 2015 1158 ------- ------- ------- ------- -- Network Results -GYNECO LOGY/OB STETRIC S 03/14/15 MERNA MUELLER 03/14 [facility] [employer] ([facility]O b/Branch Account Manager) [facility] [employer] [facility])(Ob/ Branch Account Manager) TELE CONSULT [id number] Notes Entered by: HERRERA PHILLIP 20 Mar 2015 0703 ------- ------- ------- ------- -- Network Results -GYNECO LOGY/OB STETRIC S ADMENDM ENT 03/14/15 MERNA MUELLER 03/20 [facility] [employer] ([facility]O b/Branch Account Manager) [facility] [employer] ([facility]Ob/ Branch Account Manager) OUTPATIENT [id number] hrob - edc sep 25 ANTONIO LUGO 03/27 Released w/o Limitations [facility] [employer] ([facility]O b/Branch Account Manager) [facility] [employer] ([facility]Ob/ Branch Account Manager) TELE CONSULT [id number] Notes Entered by: AKILA ROBERTS 27 Mar 2015 1145 ------- ------- ------- ------- -- HROB - EDC SEP 25 needs [facility] referra jacqueline LEFTY MUELLERSA 03/27 [facility] [employer] ([facility]O b/Branch Account Manager) [facility] [employer] ([facility])(Ob/ Branch Account Manager) TELE CONSULT [id number] Notes Entered by: HERRERA PHILLIP 11 Apr 2015 1008 ------- ------- ------- ------- -- Network Results -GYNECO LOGY/OB STETRIC S 04/11/15 LEFTY MUELLERSA 04/11 [facility] [employer] ([facility]O b/Branch Account Manager) [facility] [employer] ([facility]Ob/ Branch Account Manager) TELE CONSULT [id number] Notes Entered by: JAMES MUELLER 24 Apr 2015 1745 ------- ------- ------- ------- -- Needs [facility] for appts: [id number] and [id number] with [facility] LEFTY MUELLERSA 04/24 [facility] [employer] ([facility])(O b/Branch Account Manager) [facility] [employer] ([facility])(Ob/ Branch Account Manager) TELE CONSULT [id number] Notes Entered by: HERRERA PHILLIP 25 Apr 2015 1612 ------- ------- ------- ------- -- Network Results -GYNECO LOGY/OB STETRIC S 04/25/15 TIERRADAVIDLEFTYSA 04/25 [facility] [employer] ([facility]O b/Branch Account Manager) [facility] [employer] ([facility])(Ob/ Branch Account Manager) OUTPATIENT [id number] hrob - edc sep 25 MILLICENT VELIZ 05/01 Released w/o Limitations [facility] [employer] ([facility]O b/Branch Account Manager) [facility] [employer] ([facility]Ob/ Branch Account Manager) TELE CONSULT [id number] Notes Entered by: JAMES MUELLER 01 May 2015 1517 ------- ------- ------- ------- -- Need referra l for echo [id number] @[id number] MERNA MUELLER 05/[address] [place] [address] Group [employer] ([facility]O b/Branch Account Manager) [address] [place] [address] [employer] B ([facility])(Ob/ Branch Account Manager) TELE CONSULT [id number] Notes Entered by: HERRERA PHILLIP 09 May 2015 1110 ------- ------- ------- ------- -- Network Results -GYNECO LOGY/OB STETRIC S 05/09/15 MILLICENT VELIZ 05/[address] [place] [address] [employer] ([facility]O b/Branch Account Manager) [address] [place] [address] [employer] ([facility])(Ob/ Branch Account Manager) TELE CONSULT [id number] Notes Entered by: HERRERA PHILLIP 24 May 2015 0806 ------- ------- ------- ------- -- Network Results -GYNECO LOGY/OB STETRIC S 05/23/15 MERNA MUELLER 05/[address] [place] [address] [employer] B ([facility])(O b/Branch Account Manager) [address] [place], [place] [address]B ([facility])(Ob/ Branch Account Manager) TELE CONSULT [id number] Notes Entered by: MARY HAQ 24 May 2015 0924 ------- ------- ------- ------- -- Referra ls needed MERNA MUELLER 05/[address] [place] [address] [employer] B ([facility])(O b/Branch Account Manager) [address] [place] [address] [employer] ([facility])(Ob/ Branch Account Manager) OUTPATIENT [id number] hrob - edc sep 25 JUAN HARRY 05/31 Released w/o Limitations [facility] [employer] ([facility])(O b/Branch Account Manager) [address] [place] [address] [employer] ([facility])(Ob/ Branch Account Manager) TELE CONSULT [id number] Notes Entered by: HERRERA PHILLIP 04 Jun 2015 0810 ------- ------- ------- ------- -- Network Results -GYNECO LOGY/OB STETRIC S 05/23/15 MILLICENT VELIZ 06/[address] [place] [address] ([facility]O b/Branch Account Manager) [address] [place] [address])(Ob/ Branch Account Manager) TELE CONSULT [id number] Notes Entered by: HERRERA PHILLIP 06 Jun 2015 1453 ------- ------- ------- ------- -- Network Results -GYNECO LOGY/OB STETRIC S 06/06/15 MILLICENT VELIZ 06/[address] [place] [address] Delfino [facility] ([facility]O b/Branch Account Manager) [address] [place] [address] Delfino [facility])(Ob/ Branch Account Manager) TELE CONSULT [id number] Notes Entered by: JAMES MUELLER 06 Jun 2015 1619 ------- ------- ------- ------- -- [facility] refer[facility] health for appts [id number] and [id number] MERNA MUELLER 06/[address] [place] [address] [employer]elfino [facility] ([facility])(O b/Branch Account Manager) [address] [place] [address] Delfino [facility])(Ob/ Branch Account Manager) TELE CONSULT [id number] Notes Entered by: WAYNE LEMA 07 Jun 2015 1339 ------- ------- ------- ------- -- Network Results - CARDIOL OGY / Echo - 05/24/15 MERNA MUELLER 06/[address] [place] [address] [employer] ([facility]O b/Branch Account Manager) [address] [place] [address] [employer] ([facility])(Branch Account Manager ecology) TELE CONSULT [id number] Notes Entered by: Mohit HARRY 20 Jun 2015 1241 ------- ------- ------- ------- -- Lab results MERNA MEULLER 06/[address] [place] [address] [employer] ([facility])(Margareth rodriguez) [address] [place] [address] [employer]elfino [facility] ([facility])(Ob/ Branch Account Manager) TELE CONSULT [id number] Notes Entered by: HERRERA PHILLIP 21 Jun 2015 0756 ------- ------- ------- ------- -- Network Results -GYNECO LOGY/OB STETRIC S 06/20/15 MERNA MUELLER 06/[address] [place] [address])(O b/Branch Account Manager) [address] [place] [address])(Ob/ Branch Account Manager) TELE CONSULT [id number] Notes Entered by: Mohit HARRY 21 Jun 2015 1205 ------- ------- ------- ------- -- Glucose toleran ce test ANTONIO CLIFTON 06/[address] [place] [address])(O b/Branch Account Manager) [address] [place] [address])(Ob/ Branch Account Manager) OUTPATIENT [id number] hrob - edc sep 25 JUAN HARRY 06/29 Released w/o Limitations [address] [place] [address])(O b/Branch Account Manager) [address] [place] [address])(Ob/ Branch Account Manager) TELE CONSULT [id number] Notes Entered by: HERRERA PHILLIP 05 Jul 2015 0710 ------- ------- ------- ------- -- Network Results -GYNECO LOGY/OB STETRIC S 07/04/15 [facility] [place] [address])(O b/Branch Account Manager) [address] [place] [address])([facility]) OUTPATIENT [id number] Notes Entered by: YUN MARIE 05 Jul 2015 1518 ------- ------- ------- ------- -- GDM ELIAS MARIE 07/05 Released w/o Limitations [address] [place], [place] [address]B ([facility]N utritio nal Medicin e) [address] [place] [address])(Ob/ Branch Account Manager) OUTPATIENT [id number] hrob - edc sep 25 (ck insulin ) MILLICENT VELIZ 07/09 Released w/o Limitations [address] [place] [address] ([facility]O b/Branch Account Manager) [address] [place] [address])(Ob/ Branch Account Manager) TELE CONSULT [id number] Notes Entered by: JAMES MUELLER Shannon 09 Jul 2015 1145 ------- ------- ------- ------- -- Referra needed MERNA MUELLER 07/[address] [place] [address] ([facility]O b/Branch Account Manager) [address] [place] [address])(Ob/ Branch Account Manager) TELE CONSULT [id number] Notes Entered by: MARY AHQ 18 Jul 2015 1458 ------- ------- ------- ------- -- HROB - EDC Sep 25 needs referra jacqueline placed MERNA MUELLER 07/[address] [place] [address])(O b/Branch Account Manager) [address] [place] [address])(Ob/ Branch Account Manager) TELE CONSULT [id number] Notes Entered by: HERRERA PHILLIP 19 Jul 2015 0734 ------- ------- ------- ------- -- Network Results GYNECOL OGY/OBS TETRICS 07/18/15 MERNA MUELLER 07/[address] [place] [address] ([facility]O b/Branch Account Manager) [address] [place] [address])(Fam gisela Med Tm B Non-AD BCC) TELE CONSULT [id number] Notes Entered by: SUHAS DIETZ 24 Jul 2015 0933 ------- ------- ------- ------- -- Network results - Surgery - 5 LEFTY SMITH 07/[address] [place] [address] ([facility]F amily Med Tm B Non-AD BCC) [address] [place] [address] ([facility])(Ob/ Branch Account Manager) OUTPATIENT [id number] hrob - edc sep 25 JUAN HARRY 07/26 Released w/o Limitations [facility] [employer] [facility] ([facility]O b/Branch Account Manager) [facility] Delfino [facility])(Ob/ Branch Account Manager) TELE CONSULT [id number] Notes Entered by: HERRERA PHILLIP 02 Aug 2015 1528 ------- ------- ------- ------- -- Network Results GYNECOL OGY/OBS TETRICS 5 MILLICENT VELIZ 08/[address] [place] [address] Group Delfino [facility])(O b/Branch Account Manager) [address] [place] [address] Delfino [facility])(Ob/ Branch Account Manager) TELE CONSULT [id number] MILLICENT VELIZ 08/[address] [place] [address] Delfino [facility])(O b/Branch Account Manager) [address] [place] [address])(War rior Op Med Cln Tm A Ad) TELE CONSULT [id number] Notes Entered by: Marisol PALMER 06 Aug 2015 0911 ------- ------- ------- ------- -- NAL/OBS BURKE/ MARIE SADLER 08/06 Referred for Appointment [address] [place] [address] Delfino [facility])(W arrior Op Med Cln Tm A Ad) [address] [place] [address] Delfino [facility])(Ob/ Branch Account Manager) TELE CONSULT [id number] Notes Entered by: JAMES MUELLER 21 Aug 2015 1615 ------- ------- ------- ------- -- Referra l for MFM MERNA MUELLER 08/[address] [place] [address] Delfino [facility])(O b/Branch Account Manager) [address] [place] [address] Delfino [facility])(Ob/ Branch Account Manager) TELE CONSULT [id number] Notes Entered by: YOLANDA GOODMAN RD, RA 29 Aug 2015 1306 ------- ------- ------- ------- -- Script for breast Pump MERNA MUELLER 08/[address] [place] [address] [employer] [facility])(O b/Branch Account Manager) [address] [place] [address])(Branch Account Manager ecology) OUTPATIENT [id number] Annual E [id number] CYNDY REYNOSO 10/30 Released w/o Limitations [address] [place] [address] Delfino [facility])(G ynecolo gy) [address] [place] [address] Delfino [facility])(Branch Account Manager ecology) TELE CONSULT [id number] Notes Entered by: KASSI REYNOSO 31 Oct 2015 1254 ------- ------- ------- ------- -- results ANG GREGORY 10/[address] [place] [address])(G ynecolo gy) [address] [place] [address])(War rior Op Med Cln Tm A Ad) OUTPATIENT [id number] discuss postpar jayden anxiety /depres deysi ADRIANA VIDAL 01/03 Released w/o Limitations [address] [place] [address])(W arrior Op Med Cln Tm A Ad) [address] [place] [address])(Sco tt [facility]) TELE CONSULT [id number] Notes Entered by: Ortiz ADORNO 16 Jan 2016 0842 ------- ------- ------- ------- -- 7-10 day call NAZANIN ADORNO 01/[address] [place] [address])(S cott [facility]) [address] [place] [address])(Branch Account Manager ecology) OUTPATIENT [id number] Notes Entered by: MARY HAQ 23 Jan 2016 1235 ------- ------- ------- ------- -- walk in BP and BC refill CYNDY REYNOSO 01/22 Released w/o Limitations [address] [place] [address] Delfino [facility])(G ynecolo gy) [address] [place] [address])(Sco tt [facility]) TELE CONSULT [id number] Notes Entered by: Ortiz ADORNO 20 Feb 2016 1552 ------- ------- ------- ------- -- 4 wk. call NAZANIN ADORNO 02/[address] [place] [address] Group D[employer]ino [facility] ([facility]) [address] [place] [address])([facility]) TELE CONSULT [id number] Notes Entered by: Ortiz ADORNO 25 Feb 2016 0917 ------- ------- ------- ------- -- NAZANIN Gallardo 02/[address] [place] [address] Group [place] ([facility])([facility]) [address] [place] [address])([facility]) TELE CONSULT [id number] Notes Entered by: Ortiz ADORNO 13 Mar 2016 0822 ------- ------- ------- ------- -- 8 wk call NAZANIN ADORNO 03/[address] [place] [address] Group [place] ([facility])([facility]) [address] [place] [address] Delfino [facility])([facility]) TELE CONSULT [id number] Notes Entered by: Ortiz ADORNO 24 Mar 2016 0856 ------- ------- ------- ------- -- NAZANIN Flores 03/[address] [place] [address] Group Delfino [facility] ([facility]) [address] [place] [address] Delfino [facility])([facility]) TELE CONSULT [id number] Notes Entered by: Ortiz ADORNO 23 Apr 2016 1535 ------- ------- ------- ------- -- 12 wk call NAZANIN ADORNO 04/[address] [place] [address])([facility]) [facility] Delfino [facility])([facility]) TELE CONSULT [id number] Notes Entered by: Ortiz ADORNO 06 Jun 2016 1359 ------- ------- ------- ------- -- 16 wk. call NAZANIN ADORNO 06/[address] [place] [address] Group Delfino [facility])([facility]) [address] [place] [address])(War rior Op Med Cln Tm A Ad) OUTPATIENT [id number] Discuss medicat ion cessati on. LEFTY SMITH 06/26 Released w/o Limitations [address] [place] [address] Group [facility])(W arrior Op Med Cln Tm A Ad) [address] [place] [address] Group [facility])([facility]) TELE CONSULT [id number] Notes Entered by: Ortiz ADORNO 10 Jul 2016 1109 ------- ------- ------- ------- -- 20 wk. call NAZANIN ADORNO 07/[address] [place] [address] Group Delfino [facility])([facility]) [address] [place] [address])([facility]) TELE CONSULT [id number] Notes Entered by: Ortiz ADORNO 26 Aug 2016 1508 ------- ------- ------- ------- -- 24 wk call NAZANIN ADORNO 08/[address] [place] [address] Group Delfino [facility])([facility]) [address] [place] [address])(War rior Op Med Cln Tm A Ad) OUTPATIENT [id number] Mole on back michael gaffney size needs checked [id number] JULIO MARTIN 04/16 Released w/o Limitations [address] [place] [address] Group Delfino [facility])(W arrior Op Med Cln Tm A Ad) [address] [place] [address] Group [facility])(War rior Op Med Cln Tm A Ad) OUTPATIENT [id number] mole removal JULIO MARTIN 05/12 Released w/o Limitations [address] [place] [address])(W arrior Op Med Cln Tm A Ad) [address] [place] [address])(Branch Account Manager ecology) OUTPATIENT [id number] COntrac eptive Managem ent, 367.113 1 CYNDY REYNOSO 03/30 Released w/o Limitations [address] [place] [address])(G ynecolo gy) [address] [place] [address])(Branch Account Manager ecology) TELE CONSULT [id number] Notes Entered by: KASSI REYNOSO 31 Mar 2018 0756 ------- ------- ------- ------- -- results ANJEL DAVALOS 03/[address] [place] [address])(G ynecoangela gy) [address] [place] [address])(Branch Account Manager ecology) TELE CONSULT [id number] Notes Entered by: YUN ASCENCIO 02 Apr 2018 1011 ------- ------- ------- ------- -- Test results ANJEL DAVALOS 04/[address] [place] [address])(G ynecoangela gy) [address] [place] [address])(Branch Account Manager ecology) OUTPATIENT [id number] bp check and bc refill - [phone] CYNDY REYNOSO 06/02 Released w/o Limitations [address] [place] [address])(G ynecolo gy) [address] [place] [address])(Branch Account Manager ecology) OUTPATIENT [id number] Notes Entered by: MARY HAQ 02 Dec 2018 1259 ------- ------- ------- ------- -- walk in pregnan cy test ANJEL DAVALOS 12/02 Released w/o Limitations [address] [place] [address])(G ynecolo gy) [address] [place] [address] [employer]ino B ([facility])(Branch Account Manager ecology) OUTPATIENT [id number] new ob - edc jul 30 - [phone] ARELIS LEARY 12/31 Released w/o Limitations [address] [place] [address] Delfino [facility] ([facility])(G ynecolo gy) [address] [place] [address] Delfino B [facility]Ob/ Branch Account Manager) TELE CONSULT [id number] Notes Entered by: JAMES MUELLER 04 Jan 2019 1546 ------- ------- ------- ------- -- MFM REFERRA MERNA RAVI 01/04 Referred for Appointment [address] [place] [address])(O b/Branch Account Manager) [address] [place], [place] [address]B [facility]Ob/ Branch Account Manager) OUTPATIENT [id number] NOB 2wk f/u re headach es per Dr. Leary/ [place] 01/14 Released w/o Limitations [address] [place] [address])(O b/Branch Account Manager) [address] [place], [place] [address] [facility]Ob/ Branch Account Manager) TELE CONSULT [id number] Notes Entered by: JEREMIE VALDIVIA 31 Jan 2019 0940 ------- ------- ------- ------- -- Network results SENIOR CHEMICAL ENGINEER 019 ARELIS IGLESIAS 01/[address] [place] [address])(O b/Branch Account Manager) [address] [place] [address])(Ob/ Branch Account Manager) TELE CONSULT [id number] Notes Entered by: JEANNE KEARNS 01 Feb 2019 1245 ------- ------- ------- ------- -- Network Results OBGYN 01/17/19 ARELIS JEREZ 02/[address] [place] [address])(O b/Branch Account Manager) [address] [place] [address])(Ob/ Branch Account Manager) OUTPATIENT [id number] MARÍA ELENA EDC Jul 30 GIOVANI LANTIGUA 02/10 Released w/o Limitations [address] [place] [address])(O b/Branch Account Manager) [facility])(Ob/ Branch Account Manager) OUTPATIENT [id number] MARÍA ELENA EDC Jul [phone] ARELIS LEARY 03/10 Released w/o Limitations [address] [place] [address])(O b/Branch Account Manager) [address] [place] [address])(Ob/ Branch Account Manager) TELE CONSULT [id number] Notes Entered by: ARELIS LEARY 22 Mar 2019 1235 ------- ------- ------- ------- -- Gestati onal diabete s MERNA MUELLER 03/22 Released to [facility])(O b/Branch Account Manager) [facility])(Ob/ Branch Account Manager) OUTPATIENT [id number] New GDM diagnos is, check sugars [place] 03/31 Released w/o Limitations [address] [place] [address])(O b/Branch Account Manager) [facility])([facility]) TELE CONSULT [id number] Notes Entered by: STACI AGUIRRE 05 Apr 2019 1335 ------- ------- ------- ------- -- Gestati onal Diabete s STACI AGUIRRE 04/[address] [place] [address])(N utritio nal Medicin e) [facility])(Ob/ Branch Account Manager) OUTPATIENT [id number] 4 HROB GALILEA Jul [phone] [place] 04/08 Released w/o Limitations [address] [place] [address])(O b/Branch Account Manager) [facility] Medical [facility])(Ob/ Branch Account Manager) TELE CONSULT [id number] Notes Entered by: SWAPNIL NATION 11 Apr 2019 1051 ------- ------- ------- ------- -- Insulin needles BRI ANG Jane 04/11 Referred for Appointment [employer] [facility])(O b/Branch Account Manager) [facility]Ob/ Branch Account Manager) OUTPATIENT [id number] HROB EDC Jul 30 [place] 04/18 Released w/o Limitations [facility] [employer] [place]O b/Branch Account Manager) [facility] Medical [facility] [employer] ([facility]Branch Account Manager ecology) TELE CONSULT [id number] Notes Entered by: JU MEJIA 25 Apr 2019 0853 ------- ------- ------- ------- -- GDM glucose f/u TIM SANTOS 04/25 Referred for Appointment [facility] [employer] [facility]G ynecoangela gy) [facility] Medical [facility] [employer] B [facility]Ob/ Branch Account Manager) TELE CONSULT [id number] Notes Entered by: JAMES MUELLER 05 May 2019 1303 ------- ------- ------- ------- -- Calling in with FS log BRI ANG Jane 05/05 Referred for Appointment [facility] [employer] ([facility]O b/Branch Account Manager) [facility] [employer] [facility])(Ob/ Branch Account Manager) OUTPATIENT [id number] 5 HROB EDC Jul 30 ARELIS LEARY 05/17 Released w/o Limitations [facility] [employer] [place]O b/Branch Account Manager) [facility] Medical [facility] [employer] ([facility]Ob/ Branch Account Manager) TELE CONSULT [id number] Notes Entered by: ARELIS LEARY 26 May 2019 1331 ------- ------- ------- ------- -- Anemia and check on glucose MERNA MUELLER 05/26 [facility] [employer] [place]O b/Branch Account Manager) [employer] ([facility]Ob/ Branch Account Manager) OUTPATIENT [id number] HROB GALILEA Jul 30 F/U per [facility] r/ ARELIS LEARY 06/02 Released w/o Limitations [employer] [place]O b/Branch Account Manager) [employer] ([facility]Ob/ Branch Account Manager) OUTPATIENT [id number] Notes Entered by: SERGO MUHAMMAD 14 Jun 2019 0844 ------- ------- ------- ------- -- Walk In [facility] ARELIS LEARY 06/14 Released w/o Limitations [employer] [place]O b/Branch Account Manager) [employer] ([facility]Ob/ Branch Account Manager) OUTPATIENT [id number] Notes Entered by: FIOR YOON 17 Jun 2019 0904 ------- ------- ------- ------- -- MERNA LOCKWOOD 06/17 Released w/o Limitations [employer] [place]O b/Branch Account Manager) [employer] ([facility]Ob/ Branch Account Manager) OUTPATIENT [id number] 7 HROB EDC Jul 30/ RENATA MARMOLEJO 06/21 Released w/o Limitations [employer] ([facility]O b/Branch Account Manager) [employer] ([facility]Ob/ Branch Account Manager) OUTPATIENT [id number] Notes Entered by: FIOR YOON 24 Jun 2019 0856 ------- ------- ------- ------- -- MERNA LOCKWOOD 06/24 Released w/o Limitations [employer] [place]O b/Branch Account Manager) [employer] ([facility]Branch Account Manager ecology) OUTPATIENT [id number] Notes Entered by: BRONSON MELENDEZ 28 Jun 2019 0853 ------- ------- ------- ------- -- ARELIS DEXTER 06/28 Released w/o Limitations [employer] [place] ([facility]G ynecolo gy) [facility])(Branch Account Manager ecology) OUTPATIENT [id number] Notes Entered by: BRONSON MELENDEZ 05 Jul 2019 0856 ------- ------- ------- ------- -- GENO MADRIGAL 07/05 Released w/o Limitations [facility]G ynecolo gy) [facility] ([facility])(Ob/ Branch Account Manager) OUTPATIENT [id number] HROB EDC Jul 30 RENATA MARMOLEJO 07/07 Released w/o Limitations [address] [place] [address] ([facility]O b/Branch Account Manager) [facility])(Ob/ Branch Account Manager) OUTPATIENT [id number] Notes Entered by: DEIDRA RINCON 12 Jul 2019 0859 ------- ------- ------- ------- -- GENO MADRIGAL 07/12 Released w/o Limitations [facility] [employer] [place] ([facility]O b/Branch Account Manager) [address] [place] [address] ([facility]Ob/ Branch Account Manager) OUTPATIENT [id number] Notes Entered by: JAMES MUELLER 14 Jul 2019 0931 ------- ------- ------- ------- -- RENATA HURTADO 07/14 Released w/o Limitations [facility]O b/Branch Account Manager) [address] [place], [place] [address]B ([facility])(Ob/ Branch Account Manager) OUTPATIENT [id number] 8 Notes Entered by: BRONSON MELENDEZ 19 Jul 2019 0854 ------- ------- ------- ------- -- ARELIS DEXTER 07/19 Released w/o Limitations [facility] [place] [facility])(O b/Branch Account Manager) [facility])(Ob/ Branch Account Manager) OUTPATIENT [id number] HROB GALILEA Jul 30 RENATA MARMOLEJO 07/22 Released w/o Limitations [facility])(O b/Branch Account Manager) [facility])(Ob/ Branch Account Manager) OUTPATIENT [id number] Notes Entered by: DEIDRA RINCON 26 Jul 2019 0859 ------- ------- ------- ------- -- ARELIS DEXTER 07/26 Released w/o Limitations [facility])(O b/Branch Account Manager) Medical [facility])(Ob/ Branch Account Manager) TELE CONSULT [id number] Notes Entered by: IRENE JOHNSON LT 27 Jul 2019 0938 ------- ------- ------- ------- -- Repeat C/S earl khanna / ANG Cahhal 07/27 Referred for Appointment [facility])(O b/Branch Account Manager) [facility] [employer])(Branch Account Manager ecology) OUTPATIENT [id number] 9 2wk PP incisio n/mood check per provide r/ DEVEN TARIQ 08/11 Released w/o Limitations [facility] [employer] [facility]G ynecolo gy) [facility] [employer] [facility])(Branch Account Manager ecology) OUTPATIENT [id number] 1 6wk PP(deli wai Jul)[phone] DEVEN TARIQ 09/14 Released w/o Limitations [address] [place] [address] [employer] [facility]G ynecolo gy) [address] [place] [address])(War rior Op Med Cln Tm A Ad) OUTPATIENT [id number] 5 gall bladder issue, FEBRUARY, LILI R 09/19 Released w/o Limitations [facility] Medical Group [facility])(W arrior Op Med Cln Tm A Ad) [address] [place] [address])(War rior Op Med Cln Tm A Ad) TELE CONSULT [id number] Notes Entered by: RUFINA GUZMAN 30 Sep 2019 1521 ------- ------- ------- ------- -- Network results Physica l Therapy 019 R FEBRUARY, LILI R 09/[address] [place] [address] Group [facility])(W arrior Op Med Cln Tm A Ad) [address] [place] [address])(War rior Op Med Cln Tm A Ad) TELE CONSULT [id number]: ST MONICA AYALA 14 Oct 2019 1202 ------- ------- ------- ------- -- Network results Surgery [address] [facility] FEBRUARY, LILI R 10/14 [facility])(W arrior Op Med Cln Tm A Ad) [address] [place] [address])(War rior Op Med Cln Tm A Ad) TELE CONSULT [id number] 3 Notes Entered by: RUFINA GUZMAN 03 Nov 2019 1533 ------- ------- ------- ------- -- Network results Surgery 020 R FEBRUARY, LILI R 11/03 [facility])(W arrior Op Med Cln Tm A Ad) [facility])(Branch Account Manager ecology) OUTPATIENT [id number] 9 WWE CYNDY REYNOSO 02/08 Released w/o Limitations [facility] Medical [facility])(G ynecolo gy) [facility])(Branch Account Manager ecology) OUTPATIENT [id number] 4 PAP CYNDY REYNOSO 02/20 Released w/o Limitations [address] [place] [address])(G ynecolo gy) [address] [place] [address])(Branch Account Manager ecology) TELE CONSULT [id number] Notes Entered by: KASSI REYNOSO 22 Feb 2021 1719 ------- ------- ------- ------- -- results DEVEN EDWARDS 02/22 Other Not Elsewhere Classified [address] [place] [address])(G ynecolo gy) [address] [place] [address])(Branch Account Manager ecology) TELE CONSULT [id number] Notes Entered by: SHIVANI WILD 21 Mar 2021 1132 ------- ------- ------- ------- -- BP recordi REBECCA Meeks 03/21 Released to [facility] [address] [place] [address])(G ynecolo gy) [address] [place] [address])(Branch Account Manager ecology) TELE CONSULT [id number] Notes Entered by: ANGELA GUEVARA 28 Jun 2021 0933 ------- ------- ------- ------- -- Med REBECCA Cerda 06/28 Released to [facility] [address] [place] [address])(G ynecolo gy) [address] [place] [address])(Fam gisela Med Tm B Non-AD BCC) TELE CONSULT [id number] Notes Entered by: ISAI FELDER 21 May 2022 0942 ------- ------- ------- ------- -- Initial Referra jasper Muhammad / ( Patient called [phone]) KRISTIE BOWSER 05/21 Released to [facility] [address] [place] [address])(F amily Med Tm B Non-AD BCC) [address] [place] [address] ([facility])(Fam gisela Med Tm B Non-AD BCC) OUTPATIENT [id number] 9 FACE TO FACE: Bump on right leg. ALFREDO MUHAMMAD 06/02 Released w/o Limitations [address] [place] [address])(F amily Med Tm B Non-AD BCC) [address] [place] [address])(Branch Account Manager ecology) OUTPATIENT [id number] 3 WWE CYNDY REYNOSO 02/03 Released w/o Limitations [address] [place] [address])(G ynecolo gy) [address] [place] [address])(Branch Account Manager ecology) TELE CONSULT [id number] Notes Entered by: KASSI REYNOSO 16 Feb 2023 0956 ------- ------- ------- ------- -- results REBECCA FIELDS 02/16 Released to [facility] [address] [place] [address])(G ynecolo gy) - [facility] [id number] Body mass index (BMI) 30.0-30 .9, adult,O besity, unspeci fied,En counter for gynecol ogical examina tion (genera l) (routin e) with abnorma l finding s,Other specifi ed abnorma l finding s of blood chemist instrumentation Shayy lewis 08/03 Discharge Disposition: Home or Self Care 0055C[facility] Outpatient [id number] CYNDY RBGUERDA 08/05 Discharge Disposition: Home or Self Care 0055A-[facility] 00[facility] Between Visit [id number] 08/10 Discharge Disposition: Home or Self Care 0055C-3 [facility] Outpatient [id number] CYNDY TORREZ 09/12 Discharge Disposition: Home or Self Care 0055A[facility] Procedures Combined list of: 1) Procedures from Department of Veterans Affairs facilities going back up to thelast 18 months, not all VA non-surgical procedures are included; 2) All procedures from the Department of Defense facilities. Procedure Procedure Type Code Date Perfomer Comments Sourc e left breast bx 08/12/20 23 B9 [id number] lap choley 10/12/19 20 00[facility] C/S with BTL 07/12/20 19 0055C[facility] C/S 07/12/20 15 00[facility] WTE 10/12/19 00 0055C-[facility] TELE ASSESS & MGT SRV PROV QUAL NONPHYS HLTH CARE PRO TO EST PAT,PARENT,GUARD NOT ORIG REL ASSESS & MGT SRV PROV W/IN PREV 7 DAYS NOR LEAD ASSESS & MGT SRV/PX W/IN NXT 24 HR/SOON APT;5-10 MIN MED DIS 05/21/20 22 DoD SCREENING PAPANICOLAOU SMEAR; OBTAINING, PREPARING AND CONVEYANCE OF CERVICAL OR VAGINAL SMEAR TO LABORATORY 02/22/20 21 DoD CARE VISIT () 09/14/20 19 [facility] CARE VISIT () 08/12/20 19 DoD LIGATION OR TRANSECTION OF FALLOPIAN TUBE(S) WHEN DONE AT THE TIME OF DELIVERY OR INTRA-ABDOMINAL SURGERY (NOT SEPARATE PROCEDURE) (LIST SEPARATELY IN ADDITION TO CODE FOR PRIMARY PROCEDURE) 07/29/20 19 DoD NON-STRESS TEST 07/26/20 19 DoD NON-STRESS TEST 07/22/20 19 DoD NON-STRESS TEST 07/19/20 19 DoD NON-STRESS TEST 07/14/20 19 DoD NON-STRESS TEST 07/12/20 19 DoD NON-STRESS TEST 07/07/20 19 DoD NON-STRESS TEST 07/05/20 19 DoD NON-STRESS TEST 06/28/20 19 DoD NON-STRESS TEST 06/24/20 19 DoD ULTRASOUND, UTERUS, REAL TIME WITH IMAGE DOCUMENTATION, LIMITED (EG, HEART BEAT, PLACENTAL LOCATION, POSITION AND/OR QUALITATIVE AMNIOTIC FLUID VOLUME), 1 OR MORE FETUSES 06/21/20 19 DoD NON-STRESS TEST 06/17/20 19 DoD NON-STRESS TEST 06/14/20 19 DoD ULTRASOUND, UTERUS, REAL TIME WITH IMAGE DOCUMENTATION, LIMITED (EG, HEART BEAT, PLACENTAL LOCATION, POSITION AND/OR QUALITATIVE AMNIOTIC FLUID VOLUME), 1 OR MORE FETUSES 06/02/20 19 DoD ULTRASOUND, UTERUS, REAL TIME WITH IMAGE DOCUMENTATION, LIMITED (EG, HEART BEAT, PLACENTAL LOCATION, POSITION AND/OR QUALITATIVE AMNIOTIC FLUID VOLUME), 1 OR MORE FETUSES 04/18/20 19 DoD ULTRASOUND, UTERUS, REAL TIME WITH IMAGE DOCUMENTATION, LIMITED (EG, HEART BEAT, PLACENTAL LOCATION, POSITION AND/OR QUALITATIVE AMNIOTIC FLUID VOLUME), 1 OR MORE FETUSES 04/08/20 19 DoD ULTRASOUND, UTERUS, REAL TIME WITH IMAGE DOCUMENTATION, LIMITED (EG, HEART BEAT, PLACENTAL LOCATION, POSITION AND/OR QUALITATIVE AMNIOTIC FLUID VOLUME), 1 OR MORE FETUSES 03/31/20 19 DoD ULTRASOUND, UTERUS, REAL TIME WITH IMAGE DOCUMENTATION, LIMITED (EG, HEART BEAT, PLACENTAL LOCATION, POSITION AND/OR QUALITATIVE AMNIOTIC FLUID VOLUME), 1 OR MORE FETUSES 03/10/20 19 DoD SUBSEQ CARE VISIT () [EXCLS:PATIENTS WHO ARE SEEN FOR A CONDITION UNREL TO /PRENATA L CARE (EG,AN UP RESPIR INFECT;PATIENTS SEEN FOR CONSULTATION ONLY,NOT FOR CONT CARE)] 02/11/20 19 DoD ULTRASOUND, UTERUS, REAL TIME WITH IMAGE DOCUMENTATION, LIMITED (EG, HEART BEAT, PLACENTAL LOCATION, POSITION AND/OR QUALITATIVE AMNIOTIC FLUID VOLUME), 1 OR MORE FETUSES 01/15/20 19 DoD ULTRASOUND, PELVIC (NONOBSTETRIC), REAL TIME WITH IMAGE DOCUMENTATION; LIMITED OR FOLLOW-UP (EG, FOR FOLLICLES) 01/01/20 19 DoD GONADOTROPIN, CHORIONIC (HCG); QUALITATIVE 12/02/19 19 DoD DESTRUCTION (EG, LASER SURGERY, ELECTROSURGERY, CRYOSURGERY, CHEMOSURGERY, SURGICAL CURETTEMENT), OF BENIGN LESIONS OTHER THAN SKIN TAGS OR CUTANEOUS VASCULAR PROLIFERATIVE LESIONS; UP TO 14 LESIONS 05/13/20 17 DoD BRIEF EMOTIONAL/BEHAVIO RAL ASSESSMENT (EG, DEPRESSION INVENTORY, ATTENTION-DEFICIT /HYPERACTIVITY DISORDER [ADHD] SCALE), WITH SCORING AND DOCUMENTATION, PER STANDARDIZED INSTRUMENT 08/26/20 16 DoD TELEPHONE CALLS BY A REGISTERED NURSE TO A DISEASE MANAGEMENT PROGRAM MEMBER FOR MONITORING PURPOSES; PER MONTH 07/10/20 16 DoD TELEPHONE CALLS BY A REGISTERED NURSE TO A DISEASE MANAGEMENT PROGRAM MEMBER FOR MONITORING PURPOSES; PER MONTH 06/06/20 16 [facility] TELEPHONE CALLS BY A REGISTERED NURSE TO A DISEASE MANAGEMENT PROGRAM MEMBER FOR MONITORING PURPOSES; PER MONTH 04/23/20 16 [facility] DISEASE MANAGEMENT PROGRAM, FOLLOW-UP/REASSES SMENT 03/24/20 16 [facility] BRIEF EMOTIONAL/BEHAVIO RAL ASSESSMENT (EG, DEPRESSION INVENTORY, ATTENTION-DEFICIT /HYPERACTIVITY DISORDER [ADHD] SCALE), WITH SCORING AND DOCUMENTATION, PER STANDARDIZED INSTRUMENT 03/13/20 16 [facility] DISEASE MANAGEMENT PROGRAM, FOLLOW-UP/REASSES SMENT 02/25/20 16 [facility] TELEPHONE CALLS BY A REGISTERED NURSE TO A DISEASE MANAGEMENT PROGRAM MEMBER FOR MONITORING PURPOSES; PER MONTH 02/20/20 16 [facility] DISEASE MANAGEMENT PROGRAM; INITIAL ASSESSMENT AND INITIATION OF THE PROGRAM 01/16/20 16 [facility] SCREENING PAPANICOLAOU SMEAR; OBTAINING, PREPARING AND CONVEYANCE OF CERVICAL OR VAGINAL SMEAR TO LABORATORY 10/30/19 16 [facility] TELE ASSESS & MGT SRV PROV QUAL NONPHYS HLTH CARE PRO TO EST PAT,PARENT,GUARD NOT ORIG REL ASSESS & MGT SRV PROV W/IN PREV 7 DAYS NOR LEAD ASSESS & MGT SRV/PX W/IN NXT 24 HR/SOON APT;5-10 MIN MED DIS 08/06/20 15 [facility] SUBSEQ CARE VISIT () [EXCLS:PATIENTS WHO ARE SEEN FOR A CONDITION UNREL TO /PRENATA L CARE (EG,AN UP RESPIR INFECT;PATIENTS SEEN FOR CONSULTATION ONLY,NOT FOR CONT CARE)] 07/26/20 15 [facility] SUBSEQ CARE VISIT () [EXCLS:PATIENTS WHO ARE SEEN FOR A CONDITION UNREL TO /PRENATA L CARE (EG,AN UP RESPIR INFECT;PATIENTS SEEN FOR CONSULTATION ONLY,NOT FOR CONT CARE)] 07/09/20 15 [facility] MEDICAL NUTRITION THERAPY; INITIAL ASSESSMENT AND INTERVENTION, INDIVIDUAL, [id number] WITH THE PATIENT, EACH 15 MINUTES 07/05/20 [facility] ULTRASND, UTERUS,REAL TIME W IMG DOCUMENT, & MATERNL EVAL,AFTER 1ST TRIMESTER (>/= 14 WEEKS 0 DAYS),TRANSABDOMI N APPROACH;EA ADD GEST (LIST SEPARATELY IN ADDITION TO CODE FOR PRIM PROC) 06/29/20 15 [facility] DIABETES OUTPATIENT SELF-MANAGEMENT TRAINING SERVICES, INDIVIDUAL, PER 30 MINUTES 06/21/20 [facility] ULTRASOUND, UTERUS, REAL TIME WITH IMAGE DOCUMENTATION, LIMITED (EG, HEART BEAT, PLACENTAL LOCATION, POSITION AND/OR QUALITATIVE AMNIOTIC FLUID VOLUME), 1 OR MORE FETUSES 05/31/20 15 [facility] ULTRASOUND, UTERUS, REAL TIME WITH IMAGE DOCUMENTATION, LIMITED (EG, HEART BEAT, PLACENTAL LOCATION, POSITION AND/OR QUALITATIVE AMNIOTIC FLUID VOLUME), 1 OR MORE FETUSES 03/27/20 15 [facility] ULTRASOUND, UTERUS, REAL TIME WITH IMAGE DOCUMENTATION,TRA NSVAGINAL 02/20/20 15 [facility] TELE ASSESS & MGT SRV PROV QUAL NONPHYS HLTH CARE PRO TO EST PAT,PARENT,GUARD NOT ORIG REL ASSESS & MGT SRV PROV W/IN PREV 7 DAYS NOR LEAD ASSESS & MGT SRV/PX W/IN NXT 24 HR/SOON APT;5-10 MIN MED DIS 09/28/20 13 [facility] AZITHROMYCIN DIHYDRATE, ORAL, CAPSULES/POWDER, 1 GRAM 09/16/20 06 [facility] Ultrasound Obstetric Limited Evaluation Ultrasound Obstetric Limited Evaluation 80856 04/18/20 19 [place]AS NATION DoD OB Services Antepartum Care Only Subsequent Single Visit OB Services Antepartum Care Only Subsequent Single Visit 0502F 04/18/20 19 NINO NATIONCA Omar DoD Ultrasound Obstetric Limited Evaluation Ultrasound Obstetric Limited Evaluation 74414 04/08/20 19 NINO NATIONCA L DoD OB Services Antepartum Care Only Subsequent Single Visit OB Services Antepartum Care Only Subsequent Single Visit 0502F 04/08/20 19 NINO NATIONCA Omar DoD Ultrasound Obstetric Limited Evaluation Ultrasound Obstetric Limited Evaluation 69721 03/31/20 19 NINO NATIONCA L DoD OB Services Antepartum Care Only Subsequent Single Visit OB Services Antepartum Care Only Subsequent Single Visit 0502F 03/31/20 19 NINO NATIONCA Omar DoD Ultrasound Obstetric Limited Evaluation Ultrasound Obstetric Limited Evaluation 00176 03/10/20 19 ARELIS LEARY DoD OB Services Antepartum Care Only Subsequent Single Visit OB Services Antepartum Care Only Subsequent Single Visit 0502F 03/10/20 19 ARELIS LEARY DoD OB Services Antepartum Care Only Subsequent Single Visit OB Services Antepartum Care Only Subsequent Single Visit 0502F 02/11/20 19 GIOVANI LANTIGUA DoD Ultrasound Obstetric Limited Evaluation Ultrasound Obstetric Limited Evaluation 61452 01/15/20 19 NINO NATIONCA Omar DoD OB Services Antepartum Care Only Subsequent Single Visit OB Services Antepartum Care Only Subsequent Single Visit 0502F 01/15/20 19 THOMAS NATION [facility] Ultrasound Gynecologic Ultrasound Gynecologic 97560 01/01/20 19 ARELIS LEARY [facility] Ultrasound Trans-Vaginal Obstetric Solitary Fetus Ultrasound Trans-Vaginal Obstetric Solitary Fetus 20556 01/01/20 19 ARELIS LEARY [facility] OB Services Antepartum Care Only 1st Visit, With Flowsheet OB Services Antepartum Care Only 1st Visit, With Flowsheet 0501F 01/01/20 19 ARELIS LEARY [facility] Urine HCG, Test Urine HCG, Test 39086 12/02/19 19 ANJEL DAVALOS [facility] Destruction Of Benign Lesion By Any Method 1 - 14 Lesions Destruction Of Benign Lesion By Any Method 1 - 14 Lesions 97625 05/13/20 17 JULIO MARTIN DoD Psychometric Emotional / Behavioral A e ment Psychometric Emotional / Behavioral Assessment 01789 09/30/20 16 FOPPE, NAZANIN A DoD Telephone calls by a registered nurse to a disease management program member for monitoring purposes; per month 09/30/20 16 FOPPE, NAZANIN A DoD Telephone calls by a registered nurse to a disease management program member for monitoring purposes; per month 07/23/20 16 FOPPE, NAZANIN A DoD Psychometric Emotional / Behavioral A e ment Psychometric Emotional / Behavioral Assessment 92121 07/23/20 16 FOPPE, NAZANIN A DoD Telephone calls by a registered nurse to a disease management program member for monitoring purposes; per month 06/17/20 16 FOPPE, NAZANIN A DoD Psychometric Emotional / Behavioral A e ment Psychometric Emotional / Behavioral Assessment 14480 06/17/20 16 FOPPE, NAZANIN A DoD Telephone calls by a registered nurse to a disease management program member for monitoring purposes; per month 05/08/20 16 FOPPE, NAZANIN A DoD Psychometric Emotional / Behavioral A e ment Psychometric Emotional / Behavioral Assessment 52782 05/08/20 16 FOPPE, NAZANIN A DoD Psychometric Emotional / Behavioral A e ment Psychometric Emotional / Behavioral Assessment 72651 03/24/20 16 FOPPE, NAZANIN A DoD Telephone calls by a registered nurse to a disease management program member for monitoring purposes; per month 03/24/20 16 FOPPE, NAZANIN A DoD Disease management program, follow-up/gualberto e ment 03/24/20 16 ADRIANA PINEDO. [facility] Disease management program, follow-up/gualberto e ment 02/25/20 16 NAZANIN ADORNO Telephone calls by a registered nurse to a disease management program member for monitoring purposes; per month 02/20/20 16 NAZANIN ADORNO [facility] Disease management program; initial a e ment and initiation of the program 01/23/20 16 NAZANIN ADORNO Psychometric Emotional / Behavioral A e ment Psychometric Emotional / Behavioral Assessment 86989 01/23/20 16 NAZANIN ADORNO Screening papanicolaou smear; obtaining, preparing and conveyance of cervical or vaginal smear to laboratory 10/30/19 16 CYNDY REYNOSO [facility] Non-Physician Phone Call To Patient/Provider Brief (5-10min) Non-Physician Phone Call To Patient/Provider Brief (5-10min) [id number] 08/07/20 15 MARIE SADLER [facility] Medical Nutrition Therapy Initial A e ment And Intervention Each 15 Minutes Medical Nutrition Therapy Initial Assessment And Intervention Each 15 Minutes [id number] 07/27/20 15 ELIAS MARIE [facility] Ultrasound Obstetric Limited Evaluation Ultrasound Obstetric Limited Evaluation [id number] 07/26/20 15 ERMAMIE, JUAN B DoD OB Services Antepartum Care Only Subsequent Single Visit OB Services Antepartum Care Only Subsequent Single Visit [id number] 07/26/20 15 ERMIS, JUAN B DoD OB Services Antepartum Care Only Subsequent Single Visit OB Services Antepartum Care Only Subsequent Single Visit [id number] 07/09/20 15 MILLICENT VELIZ DoD Ultrasound Obstetric Limited Evaluation Ultrasound Obstetric Limited Evaluation [id number] 07/09/20 15 MILLICENT VELIZ [facility] Ultrasound Obstetric For Multiple Gestation Twins Ultrasound Obstetric For Multiple Gestation Twins [id number] 06/29/20 15 ERMAMIE, JUAN B DoD OB Services Antepartum Care Only Subsequent Single Visit OB Services Antepartum Care Only Subsequent Single Visit [id number] 06/29/20 15 KAMRYN JUAN B DoD Diabetes outpatient self-management training services, individual, per 30 minutes 06/25/20 15 ANTONIO LCIFTON DoD Ultrasound Obstetric Limited Evaluation Ultrasound Obstetric Limited Evaluation [id number] 05/31/20 15 ERMIS, JUAN B DoD OB Services Antepartum Care Only Subsequent Single Visit OB Services Antepartum Care Only Subsequent Single Visit [id number] 05/31/20 15 ERMIS, JUAN B DoD Ultrasound Obstetric Limited Evaluation Ultrasound Obstetric Limited Evaluation [id number] 03/28/20 15 ANTONIO LUGO [facility] OB Services Antepartum Care Only Subsequent Single Visit OB Services Antepartum Care Only Subsequent Single Visit [id number] 03/28/20 15 ANTONIO LUGO [facility] Ultrasound [place] [id number] 02/20/20 15 JUAN HARRY [facility] OB Services Antepartum Care Only First Visit, With Report OB Services Antepartum Care Only First Visit, With Report [id number] 02/20/20 15 JUAN HARRY [facility] Non-Physician Phone Call To Patient/Provider Brief (5-10min) Non-Physician Phone Call To Patient/Provider Brief (5-10min) [id number] 09/30/20 13 TYRELL LUCIO [facility] OB Services Antepartum Care Only Subsequent Single Visit OB Services Antepartum Care Only Subsequent Single Visit [id number] ARELIS LEARY [facility] Ultrasound Obstetric Limited Evaluation Ultrasound Obstetric Limited Evaluation [id number] ARELIS LEARY [facility] Non-Stre Test (___ 0,2) Non-Stress Test (___ 0,2) [id number] MERNA MUELLER Instructed pt on labor precautions and when to go to L&D: contractions>4-6 /h for at least an hour; VB; LOF-red/brown/gr een--immediately ; ROF-ahptd-diy a pad on and check in one hour, if wet, go; decreased FM <10 movements/2h. Pt verbalized understanding and agrees with plan of care. [facility] Non-Stre Test (___ 0,2) Non-Stress Test (___ 0,2) [id number] MERNA MUELLER [facility] Non-Stre Test (___ 0,2) Non-Stress Test (___ 0,2) [address] in to review strip and talk with pt briefly. next appt in 2wks and will discuss delivery options. pt very happy with that news. pt denies any RUQ pain today, said she has been eating less and watching what she eats-no fatty, spicy or greasy food. [facility] Non-Stre Test (___ 0,2) Non-Stress Test (___ 0,2) 44088 RENATA MARMOLEJO Instructed pt on labor precautions and when to go to L&D: contractions>4-6 /h for at least an hour; VB; LOF-red/brown/gr een--immediately ; FEK-kstra-zcl a pad on and check in one hour, if wet, go; decreased FM <10 movements/2h. Pt verbalized understanding and agrees with plan of care. pt taken to exam room for OB Appt after NST [facility] Non-Stre Test (___ 0,2) Non-Stress Test (___ 0,2) [id number] RENATA MARMOLEJO Instructed pt on labor precautions and when to go to L&D: contractions>4-6 /h for at least an hour; VB; LOF-red/brown/gr een--immediately ; UTZ-vtdbs-rbo a pad on and check in one hour, if wet, go; decreased FM <10 movements/2h. Pt verbalized understanding and agrees with plan of care. pt taken to exam room for OB appt. [facility] Obstetrical Services Care Visit Obstetrical Services Care Visit [id number] DEVEN TARIQ [facility] Screening papanicolaou smear; obtaining, preparing and conveyance of cervical or vaginal smear to laboratory CYNDY REYNOSO [facility] Non-Physician Phone Call To Patient/Provider Brief (5-10min) Non-Physician Phone Call To Patient/Provider Brief (5-10min) [id number] KRISTIE BOWSER [facility] Social History Combined list of available smoking, tobacco, and other social history from [facility] and [facility] facilities. Social History Type Response Date Comment [facility] e Female 08/16/2021 Ambulatory Pha rmacy Tobacco Frequent/Daily exposure to secondhand smoke in indoor/confined spaces No. Cigarette use: Former-cigarette user. Average PACKS per day: (10 cigarettes = 0.5 packs) 1pk/wk. Total years of smoking cigarettes: 10. *Total pack years (*reqd for current/former users to complete the Rec. Packs/day times total years) 1. *Stopped cigarettes age (*required for former users to complete the Recommendation) 30 Years. Other Tobacco use: Never-other tobacco user (not cigarettes). Ambulatory Pharmacy Sexual Orientation Ambula [facility] Pharmacy Gender identity Ambulator y Pharmacy This section is an empty social history section. [facility]D Assessment and Plan Combined list of future care activities from [facility] Defense and Veterans Affairs facilities (e.g., assessment and plan notes, appointments, orders, and referrals). Additional future care activities may be listed in the Plan of Care section. Result Assessment and Plan Date Source Assessment and Plan Extracted from:Title : [employer]/WWE, restart oc's Author: CYNDY REYNOSO NP Date: 08/03/24 1.?Encounter for gynecological examination (general) (routine) with abnormal findings Over 50% of ?minute visit spent face to face with patient on education, reviewing history, and developing plan of care. Continue monthly BSE and yearly well woman exams.??Return to clinic in 1 year.? ? Exercise: 30 minutes of moderate exercise 5 days a week including cardio and strength training is recommended for a healthy lifestyle.?This should be in addition to your normal daily work/routine.??If you are trying to lose weight more exercise along with a healthy diet is recommended. ? Supplements/Vitamins: If you are not following, or able to follow a well-balanced diet indicated below due to personal or medical reasons, it is recommended you take a?multivitamin. This is especially important if you are trying to get as?women need additional folic acid before and during (400-1000 micrograms per day).??Daily calcium intake should be around 1200 mg per day?which is 120% of the recommended daily allowance if looking at food labels.??We recommend?Vitamin D3 2,000-3,000 international units a day?if you have not already been identified with an insufficiency or deficiency. ? Nutrition:?A healthy diet with protein, vegetables, fruits, grains, and dairy is advised. More information including example serving sizes can be found at?https://www.choosemyplate.gov/. ?These amounts are appropriate for individuals who get less than 30 minutes per day of moderate physical activity, beyond normal daily activities. Those who are more physically active may be able to consume more while staying within calorie needs. ? Ordered: folic acid(folic acid 1 mg oral tablet), 1 tab(s), Oral, Daily, # 90 tab(s), 3 total refill(s), Maintenance, 1 tab(s) Oral Daily, Pharmacy: [facility] [Federal Rx: #90 last filled 08/03/24] cholecalciferol(Vitamin D3 125 mcg (5000 intl units) oral capsule), 1 cap(s), Oral, Daily, with food, # 90 cap(s), 4 total refill(s), Maintenance, 1 cap(s) Oral Daily,Instr:with food, Pharmacy: [facility] [Federal Rx: #90 last filled 08/03/24] Hemoglobin and Hematocrit Vitamin D 25 Hydroxy Level MG Mammo Rommel Screening Bilateral ? 2.?Flushing risks, side effects oc's reviewed; to restart oc's Thursday; f/u if symptoms persist Ordered: drospirenone-ethinyl estradiol(Pippa 3 mg-0.03 mg oral tablet), 1 tab(s), Oral, Daily, # 112 tab(s), 4 total refill(s), Maintenance, 1 tab(s) Oral Daily, Pharmacy: [facility] [Federal Rx: #112 last filled 08/03/24] TSH w/ Reflex FT4 and Total T3 ? 3.?Other specified abnormal findings of blood chemistry low fat/low chol diet, no more than 25% total calories from fat,?decrease carbs to decrease TG; repeat lab fasting eat small, frequent meals, avoid simple sugars, eat more complex carbs Ordered: Hemoglobin A1c Lipid Panel ? 4.?Obesity, unspecified increase exercise, decrease calories to decrease wt/BMI; advised healthy lifestyle, namely whole food plant based diet w/ regular exercise. Advise nutrition willian/diary to track energy intake vs expenditure f/u prn PVUA. ? 5.?BMI 30.0-30.9 Pt questions addressed and written discharge instructions were provided to the patient. ? Cyndy Reynoso [facility]? 11/10/2024 Ambulatory Pharmacy Functional Status Combined list of recent functional and cognitive assessments recorded at [facility] and [facility] (VA).VA Functional Bandera Measurement (FIM) Scale: 1 = Total Assistance (Subject = 0% +), 2 = Maximal Assistance (Subject = 25% +), 3 = Moderate Assistance (Subject = 50% +), 4 = Minimal Assistance (Subject = 75% +), 5 = Supervision, 6 = Modified Bandera (Device), 7 = Complete Bandera (Timely, Safely). Assessment Date/Time Source Assessment Type Assessment Skill Assessment Score Assessment Details No data available for this section
--- NOTE | 2024-11-10 09:45 | ED_ITS ---
HPI - URI/Sore Throat General Chief Complaint: Upper Respiratory Infection Stated Complaint: sore throat / dental Pain History of Present Illness HPI Narrative: Patient is a 44-year-old female, without significant past medical history, presents to [facility] with 7-10 day history of URI symptoms, initially complaining of pain in her right ear that has since moved to her left ear now with focal left maxillary and frontal sinus pressure / pain that seems to exhibit pressure in her left upper teeth. She denies focal dental pain. She has a mild sore throat in the morning upon waking and notes that she has significant amount of drainage running down the back of the throat at night when she lays down. She is also blowing some thick nasal discharge from her nares. She denies associated fevers or chills, she has no significant cough, she denies chest pain shortness of breath. She did see her dentist 1 week ago and reports she was advised her teeth or healthy. She denies chance of , she has no other complaints Related Data Home Medications ?Medication ?Instructions ?Recorded ?Confirmed ?Last Taken ?Type cholecalciferol (vitamin D3) 125 125 mcg PO WEEKLY 12/22/23 12/22/23 Unknown History mcg (5,000 unit) capsule drospirenone 3 mg-ethinyl tablet 11/10/24 Unknown History estradiol 0.03 mg tablet folic acid 1 mg tablet 11/10/24 Unknown History Allergies Allergy/AdvReac Type Severity Reaction Status Date / Time No Known Allergies Allergy Verified 11/10/24 09:35 Review of Systems ENT: Comments: refer to HPI Respiratory: Comments: [facility] Past Medical History Medical History No significant past medical history Social History Social History Gender identity (if verbalized by the patient): Female Exam Const: General: healthy appearing Nutritional Appearance: well nourished Orientation/consciousness: patient oriented x3 Limitations: no limitations HENMT: Head: normal to inspection Ears: external ears normal and TM abnormal ( right TM is opaque, left TM is retracted but translucent) Face and sinus: sinus tenderness ( left-sided) frontal and maxillary Mouth: Yes lip normal, Yes moist mucous membranes and Yes Abnormal oral and palatal mucosa present ( pharyngeal mucosa has cobblestone appearance) Throat: posterior oropharynx normal and uvula midline Eyes: Conjunctivae: conjunctivae normal Pupils: Equal, round and reactive pupils present EOM: EOMs intact bilaterally Direct Ophthalmoscopy: no photophobia Neck: Neck: normal visual inspection, no lymphadenopathy and no meningeal signs Resp: Effort & Inspection: normal respiratory effort Auscultation: clear to auscultation bilaterally Cardio: Rate: regular rate Rhythm: regular rhythm Other: heart rate is 96 beats per minute PMI Skin: General skin exam: normal color Rashes: no rashes Wounds: no wounds Extrem: General: normal to inspection Course Course Emergency Course: plan to treat empirically for sinusitis and evolving right otitis media, will treat with Augmentin, short steroid course additionally, follow-up with PCP in 3 days for ear check if symptoms are not improving. Patient is agreeable plan. She is also advised if she develops focal dental pain, to return to her dentist Level of Care: Express Care Visit (74077) Vital Signs Vital signs: Vital Signs Temperature 36.7 C 11/10/24 09:13 Pulse Rate 108 H 11/10/24 09:13 Respiratory Rate 18 11/10/24 09:13 Blood Pressure 128/84 11/10/24 09:13 Pulse Oximetry 99 11/10/24 09:13 Oxygen Delivery Room Air 11/10/24 09:13 Temperature 36.7 C 11/10/24 09:13 Pulse Rate 108 H 11/10/24 09:13 Respiratory Rate 18 11/10/24 09:13 Blood Pressure 128/84 11/10/24 09:13 Pulse Oximetry 99 11/10/24 09:13 Oxygen Delivery Room Air 11/10/24 09:13 MDM - URI/Sore Throat MDM Narrative Medical decision making narrative: Augmentin and prednisone Differential Diagnosis Differential diagnosis: Likely upper respiratory infection, otitis media, sinusitis, viral infection, bronchitis and pharyngitis Discharge Plan Discharge Clinical Impression: Sinusitis Qualifiers: Sinusitis location: maxillary Chronicity: acute Recurrence: non-recurrent Qualified Code(s): J01.00 - Acute maxillary sinusitis, unspecified Otitis media Qualifiers: Otitis media type: suppurative Chronicity: acute Laterality: right Recurrence: non-recurrent Spontaneous tympanic membrane rupture: without spontaneous rupture Qualified Code(s): H66.001 - Acute suppurative otitis media without spontaneous rupture of ear drum, right ear Patient Disposition: Home, Self-Care Condition: Stable Instructions: Antibiotic Form, Sinusitis (ED), Ear Infection (ED) Additional Instructions: START AND COMPLETE ORAL ANTIBIOTICS PRESCRIBED. START AN [id number] PROBIOTIC IF DIARRHEA ARISES. PUSH FLUIDS AND REST. MAY TAKE TYLENOL DIRECTED [id number] FOR ADDITIONAL DISCOMFORT. COMPLETE ORAL STEROIDS DIRECTED. SEE YOUR DOCTOR FOR AN EAR CHECK IN 3 DAYS IF SYMPTOMS ARE NOT IMPROVING. FOLLOW-UP WITH YOUR DENTIST IF YOU DEVELOP FOCAL DENTAL PAIN Patient Language: Citizen Of [place] Prescriptions: New amoxicillin-pot clavulanate 875-125 mg tablet 1 tablet PO Q12H Qty: 20 0RF prednisone 20 mg tablet 40 mg PO DAILY 5 Days Qty: 10 0RF No Action cholecalciferol (vitamin D3) 125 mcg (5,000 unit) capsule 125 mcg PO WEEKLY folic acid 1 mg tablet drospirenone-ethinyl estradiol 3-0.03 mg tablet Follow-up/Referrals: ODESSA, [Primary Care Provider] - Time of Disposition: 09:52
== END 2024-11-10 09:59 | disposition home or self-care (01) ==
PROVIDERS: Emergency Provider Nurse Practitioner Family
DX: J32.9 Chronic sinusitis, unspecified (principal); H66.001 Acute suppurative otitis media without spontaneous rupture of ear drum, right ear
CPT/HCPCS: 99213; G0463